=== PATIENT | male | born 1930 | race Caucasian/White ===

== ENCOUNTER 2016-11-03 16:18 | Inpatient (IN) | payer MEDICARE ==
[~2016-11-03] VITALS: Ht 175.3 cm; Wt 79.1 kg
[~2016-11-03 16:18] MED LIST: ALBU83IN INH; CARD120C3 PO; KLOR1TAB69 PO; LASI80TA PO; PLAV75TA38 PO; PRAD150C PO; RANI15TA PO; ZOCO20TA PO
--- NOTE | 2016-11-03 17:10 | REP ---
PORTABLE CHEST: AP portable view of the chest is performed and compared to prior study of 09/10/2015. There is mild cardiomegaly. There is no acute infiltrate or pulmonary edema. Lung rocha appear unchanged. There is mild calcification of the thoracic aorta. The mediastinal silhouette is unchanged. Multiple sternal wires are present. IMPRESSION: Mild cardiomegaly. No evidence of acute infiltrate or pulmonary edema. Signed by Bob Carter MD 11/04/2016 01:12 P
[2016-11-03] MEDS ORDERED: IPRATROPIUM 0.5MG/ALBUTEROL 2.5MG INH SOL UD 3ML (DUONEB)(J7620) As Ordered ONE ×2 (17:13→18:50)
[2016-11-03] MEDS ORDERED: ALBUTEROL SULFATE 2.5 MG/0.5 ML INH NEB SOLN As Ordered ONE (17:13)
[2016-11-03 17:25] LABS: BASO % 0.7 % (0.0-1.0); EOS # 0.3 K/mm3 (0.0-0.50); EOS % 4.7 % (0.0-3.0); LARGE UNSTAINED CELL # 0.2 K/mm3 (0.0-0.4); LARGE UNSTAINED CELL % 2.7 % (0.0-4.0); LYMPH # 0.7 K/mm3 (1.5-4.5); MEAN CORPUSCULAR HEMOGLOBIN 29.3 pg (27.0-33.0); MEAN CORPUSCULAR VOLUME 91.3 fl (80.0-96.0); MONO # 0.4 K/mm3 (0.0-0.8); NEUTROPHILS # 4.2 K/mm3 (1.8-7.7); NEUTROPHILS % 72.9 % (36.0-66.0); PLATELET COUNT, AUTOMATED 206 k/mm3 (150-450); RED CELL DISTRIBUTION WIDTH 14.2 % (11.5-14.5); WHITE BLOOD COUNT 5.8 K/mm3 (4.0-10.0)
[2016-11-03 17:56] LABS: ANION GAP 8 MEQ/L (8-16); BLOOD UREA NITROGEN 27 MG/DL (7-18); CARBON DIOXIDE LEVEL 31 MEQ/L (21-32); CHLORIDE LEVEL 101 MEQ/L (98-107); GLOMERULAR FILTRATION RATE > 60.0 (>35); GLUCOSE, FASTING 94 MG/DL (83-110); SODIUM LEVEL 140 MEQ/L (136-145)
[2016-11-03] MEDS ORDERED: methylPREDNISolone INJ 125 MG/2 ML VIAL (J2930) As Ordered ONE (18:28)
[2016-11-03] MEDS ORDERED: ALBU17IN INH (19:24)
[2016-11-03] MEDS ORDERED: PRAD150C PO (19:24)
[2016-11-03] MEDS ORDERED: PANT40TA2 PO (19:24)
[2016-11-03] MEDS ORDERED: POTA20TA PO (19:24)
[2016-11-03] MEDS ORDERED: ALLO100T PO (19:24)
[2016-11-03] MEDS ORDERED: CALC1CAP31 PO (19:24)
[2016-11-03 20:23] LABS: ABG BASE EXCESS -0.3 (-2.0-2.0); ABG DEVICE NASAL CANN; ABG HCO3 24.2 MEQ/L (22.0-26.0); ABG PARTIAL PRESSURE CO2 39.4 mmHg (35.0-45.0); ABG PARTIAL PRESSURE O2 118.9 mmHg (75.0-100.0); ABG STANDARD HCO3 24.3 MEQ/L (22.0-26.0); ABG TOTAL CO2 25.5 MEQ/L (23.0-31.0); ABG pH (ARTERIAL) 7.407 UNITS (7.350-7.450)
[2016-11-03] MEDS ORDERED: ISOVUE-370 76% 100ML VIAL (Q9967) As Ordered ONE (20:27)
--- NOTE | 2016-11-03 21:30 | REPUSA ---
Clinical history: Pain, swelling. Findings: The right common femoral, superficial femoral, popliteal, and other deep venous structures compress normally and demonstrate normal color Doppler flow. Normal venous waveforms with augmentatio n are seen. There is a right inguinal lymph node appreciated, measuring 2.1 x 1.0 I 1.7 cm, of uncert ain clinical significance. Impression: No evidence of deep vein thrombosis in the right femoral popliteal venous system.
--- NOTE | 2016-11-03 22:00 | REPUSA ---
CT angiogram of the chest Clinical statement: Chest pain and shortness of breath. Technique: Multiple axial CT images were obtained from the thoracic inlet through the upper abdomen a fter a bolus administration of nonionic intravenous contrast. Coronal and sagittal reconstructions we re also obtained. No comparison is available. Findings: The pulmonary arteries are well-opacified with contrast, with no intraluminal filling defec ts to suggest embolism. The thoracic aorta is unremarkable, with minimal atherosclerotic calcificatio ns. Thyroid gland is within normal limits. There is no thoracic lymphadenopathy. There are no pericar dial or pleural effusions. The lungs are clear. Limited imaging of the upper abdomen is unremarkable. There are no suspicious osseous lesions. Impression: Unremarkable CT examination of the chest. No evidence of pulmonary embolism.
[2016-11-03] MEDS ORDERED: PERCOCET 5MG/325MG TAB PO PRN (22:15)
[2016-11-03] MEDS ORDERED: ONDANSETRON 4MG/2ML VIAL (J2405) IV PRN (22:15)
[2016-11-03] MEDS ORDERED: ONDANSETRON 4 MG TAB (S0181) PO PRN (22:15)
[2016-11-03] MEDS ORDERED: ACETAMINOPHEN TAB 650MG DOSE (2X325MG) PO PRN (22:15)
--- NOTE | 2016-11-03 23:05 | HPEPDOC ---
Medical History and Physical Date of Admission Nov 03, 2016 at 22:07 History and Physical HISTORY AND PHYSICAL Date of admission: 11/03/2016 PCP: Dr. 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 fib, hypertension, hyperlipidemia, GERD, gout who presents with gradual worsening of shortness of breath. He states that this is been going on for almost a week, and keeps getting gradually worse. He notes that any sort of "stress" causes it to get worse, and the only thing that relieves it, is doing nothing. Today, he went to see his primary care physician Dr. Jason Toussaint secondary to his shortness of breath. Dr. Toussaint was concerned and sent him to the emergency department, the emergency department, he was satting 85-88% on room air. Lung imaging did not reveal any pulmonary embolism or pneumonia, and he does not appear to be volume overloaded. He has an audible wheeze, and I suspect that he is having an acute exacerbation of some sort of underlying chronic pulmonary issue. He denies any history of asthma or COPD, as well as ever smoking, but he does report that he has had an inhaler for home use for quite a while. 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 He currently lives alone , as his several months ago. He does have 3 children who live in the area. He denies any current or prior use of alcohol or tobacco. Allergies: No known drug allergies Review of systems: General: Negative for fever and chills Eyes: Negative for vision changes and ocular discharge ENT: Negative for sore throat and nose bleeding Cardiovascular: Negative for chest pain and palpitations Respiratory: Positive for cough, shortness of breath, and wheezing GI: Negative for nausea, vomiting, diarrhea, constipation Musculoskeletal: Negative for neck and back pain Skin: Positive for long-standing rash on legs Neuro: Negative for headache, dizziness, numbness, tingling Psych: Negative for suicidal ideation and depression Endocrine: Negative for polyuria : Positive for dysuria Heme: Negative for bruising and bleeding Home meds: See below Physical exam: Vital signs: Blood pressure 172/81, HR 78, temperature 96.1, O2 sat 84% on room air, RR 20 Gen.: awake, alert, no acute distress Eyes: Extraocular movements intact, normal sclera ENT: Moist mucous membranes Cardiovascular: RRR, no murmurs rubs or gallops Lungs: audible wheeze without stethoscope; auscultation exam reveals prolonged exp phase with diffuse exp wheezes Abdomen: Soft, NT/ND, normal BS Musculoskeletal: normal range of motion Extremities: No peripheral edema Neuro: alert and oriented 3, normal speech, no focal deficits Psych: Normal mood with congruent affect Labs and radiology: See below D-dimer greater than 1700 Troponin within normal limits BNP 167 Chest x-ray unremarkable Right lower extremity Doppler negative for DVT CTA with no evidence of pulmonary embolism Assessment and plan: 86-year-old male with coronary artery disease status post CABG, 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 fib, hypertension, hyperlipidemia, GERD, gout who presents with acute respiratory failure. 1. Acute respiratory failure: Patient denies any history of asthma or COPD, as well as any smoking history, but he does report that he has had an albuterol inhaler for many years. I suspect that this is an acute exacerbation of potentially chronic "lópez's lung." Other potential etiologies for his shortness of breath are unrevealing, as a CTA rules out PE, chest imaging rules out any pulmonary edema or PNA, and his hemoglobin is currently within normal limits. We will continue him with scheduled and as needed DuoNeb's, as well as steroids and Levaquin. 2. 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 No aspirin, as the patient is on pradaxa for his A. fib. The patient may potentially benefit from a beta michael, a decision which we will leave up to his primary physicians. 3. Chronic A. fib: The patient currently is in normal sinus rhythm with PACs. He is rate controlled. We'll continue his home diltiazem and and pradaxa. 4. Hypertension: Continue home diltiazem and and home Lasix. 5. GERD: Continue home PPI. 6. Gout: Not currently active. Continue home allopurinol. 7. Suspicion for underlying CHF: The patient is on a hefty dose of Lasix at home chronically. He is unaware of any history of CHF, but given his extensive cardiac history and the Lasix that he is prescribed, I suspect that he might have underlying CHF. We do not see any evidence of active edema on imaging, and a BNP is only 167. However, given his slightly unclear acute respiratory failure , we will check an echo, as well as continue his home Lasix. DVT prophylaxis: Home Pradaxa Dispo: admit as an inpatient to the service of Dr. Camp CODE STATUS: Full code Vital Signs see above Laboratory Data Labs 24H Laboratory Tests 2 11/03/16 17:13: Anion Gap 8, B-Type Natriuretic Peptide 167H, White Blood Count 5.8, Red Blood Count 4.83, Hemoglobin 14.1, Hematocrit 44.1, Mean Corpuscular Volume 91.3, Mean Corpuscular Hemoglobin 29.3, Mean Corpuscular Hemoglobin Concent 32.0, Red Cell Distribution Width 14.2, Platelet Count 206, Neutrophils (%) (Auto) 72.9H, Lymphocytes (%) (Auto) 12.0L, Monocytes (%) (Auto) 7.0H, Eosinophils (%) (Auto) 4.7H, Basophils (%) (Auto) 0.7, Neutrophils # (Auto) 4.2, Lymphocytes # (Auto) 0.7L, Monocytes # (Auto) 0.4, Eosinophils # (Auto) 0.3, Basophils # (Auto) 0.0, Blood Urea Nitrogen 27H, Creatinine 1.10, Sodium Level 140, Potassium Level 4.0 , Chloride Level 101, Carbon Dioxide Level 31, Calcium Level 9.0, Total Creatine Kinase 219, Creatine Kinase MB 6.4H, Creatine Kinase MB Relative Index 2.92, Glomerular Filtration Rate > 60.0, Large Unclassified Cells # 0.2, Large Unclassified Cells % 2.7, Troponin I 0.03 11/03/16 19:32: D-Dimer, Quantitative 1756.9H 11/03/16 20:08: Arterial Blood pH 7.407, Arterial Blood Partial Pressure CO2 39.4, Arterial Blood Partial Pressure O2 118.9H, Arterial Blood Total CO2 25.5, Arterial Blood HCO3 24.2, Arterial Blood Base Excess -0.3, Arterial Blood Oxygen Saturation 98.6, Blood Gas Bicarbonate Standard 24.3, Oxygen Delivery Device NASAL RHONDA CBC/BMP Laboratory Tests 11/03/16 17:13 Calcium Level 9.0, Total Creatine Kinase 219, Red Blood Count 4.83, Mean Corpuscular Volume 91.3, Mean Corpuscular Hemoglobin 29.3, Mean Corpuscular Hemoglobin Concent 32.0, Red Cell Distribution Width 14.2, Neutrophils (%) (Auto ) 72.9 H, Lymphocytes (%) (Auto) 12.0 L, Monocytes (%) (Auto) 7.0 H, Eosinophils (%) (Auto) 4.7 H, Basophils (%) (Auto) 0.7, Neutrophils # (Auto) 4.2 , Lymphocytes # (Auto) 0.7 L, Monocytes # (Auto) 0.4, Eosinophils # (Auto) 0.3, Basophils # (Auto) 0.0 Microbiology Microbiology 11/03/16 Blood Culture, Received Pending 11/03/16 Blood Culture, Received Pending Home Medications Scheduled Allopurinol (Allopurinol) 100 Mg Tab 100 MG PO DAILY Calcitriol (Calcitriol) 0.25 Mcg Cap 0.25 MCG PO QPM Clopidogrel Bisulfate (Plavix) 75 Mg Tab 75 MG PO QPM Dabigatran Etexilate (Pradaxa) 150 Mg Cap 150 MG PO BID Diltiazem Hcl (Cardizem Cd) 120 Mg Cap 120 MG PO DAILY Furosemide (Lasix) 80 Mg Tab 80 MG PO DAILY Pantoprazole Sodium (Pantoprazole Sodium) 40 Mg Tab 40 MG PO DAILY Potassium Chloride (Klor-Con M20) 20 Meq Tabcr 20 MEQ PO QPM Simvastatin (Zocor) 20 Mg Tab 20 MG PO DAILY Scheduled PRN Albuterol Sulfate (Albuterol Sulfate) 2.5 Mg/3 Ml Nebu 2.5 MG INH Q6HP PRN PRN SOB/WHEEZING Albuterol Sulfate (Ventolin Hfa) 200 Puff/8 Gm Aers 2 PUFF INH Q4H PRN PRN SHORTNESS OF BREATH Allergies Coded Allergies: No Known Allergies (Unverified , 10/06/14) EDMUNDO BUCHANAN Nov 03, 2016 23:05
[2016-11-04] VITALS (7 sets, daily range): BP systolic 140–163; BP diastolic 65–88
--- NOTE | 2016-11-04 01:11 | EDDOCDS ---
Nurse's Notes [facility] Name: Kendall Salazar Age: 86 yrs Sex: Male : 1930 Arrival Date: 11/03/2016 Time: 16:18 Bed 15 Private MD: Jason Toussaint H. Diagnosis: Shortness of breath;Wheezing Presentation: 11/03 16:35 Presenting complaint: Patient states: cough and SOB x [address] Toussaint's [facility] office. Red Flag criteria, finish triage then to bed. 16:35 Acuity: DANNY Level 2 [facility] 16:37 Adult Sepsis Screening: The patient does not have new or worsening altered mentation. [facility] Patient has a respiratory rate of greater than or equal to 22 (1 point). Systolic blood pressure is greater than 100. Patient has a qSOFA score of 1- Negative Sepsis Screen. Suicide/Homicide risk assessment- the patient denies having any suicidal and/or homicidal ideations and does not present with any other emotional, behavioral or mental health complaints. Status: Patient is not a food service specialist or dependent. Transition of care: patient was received from a primary care office; Dr Toussaint. 16:37 Method Of Arrival: Walkin/Carried/Asstd [facility] Triage Assessment: 16:44 General: Appears well nourished, well groomed, Behavior is appropriate for age, kpj pleasant. Pain: Denies pain. Neurological: Level of Consciousness is awake, alert, Oriented to person, place, time. Cardiovascular: Chest pain is denied. Respiratory: Onset: The symptoms/episode began/occurred 2-3 days ago, Airway is patent Respiratory effort is labored, shallow, Respiratory pattern is regular, symmetrical, Reports shortness of breath cough that is labored breathing wheezing. Derm: Skin is dry, Skin is pale, pink, Skin temperature is warm. Historical: - Allergies: No known drug Allergies; - Home Meds: 1. calcitriol 0.25 mcg oral cap 1 cap (Last dose: 11/03/2016 08:00) 2. Klor-Con M20 20 mEq Oral TbTQ 1 tab once daily (Last dose: 11/03/2016 08:00) 3. furosemide 80 mg Oral tab 1 tab once daily (Last dose: 11/03/2016 08:00) 4. albuterol sulfate 2.5 mg /3 mL (0.083 %) Nebulizer nebu 3 mL 4 times per day as needed (Last dose: 11/02/2016) 5. diltiazem HCl 120 mg Oral cp24 1 cap once daily (Last dose: 11/03/2016 08:00) 6. simvastatin 20 mg Oral tab 1 tab once daily (Last dose: 11/03/2016 08:00) 7. Plavix 75 mg Oral tab 1 tab once daily (Last dose: 11/03/2016 08:00) 8. Pradaxa 150 mg oral cap 1 cap 2 times per day (Last dose: 11/03/2016 08:00) 9. allopurinol 100 mg Oral tab 1 tab once daily (Last dose: 11/03/2016 08:00) 10. pantoprazole 40 mg oral TbEC 1 tab once daily (Last dose: 11/03/2016 08:00) 11. Ventolin Rotahaler/Rotacaps 200 mcg Inhl CpDv every 4 hours as needed - PMHx: Gout; CAD; GERD; Hypercholesterolemia; Hypertension; - PSHx: CABG; femoral popliteal bypass graft right leg; - Social history: Smoking status: Patient states was never smoker of tobacco. No barriers to communication noted, The patient speaks fluent Romanian. - Family history: Not pertinent. - : The pt / caregiver states he / she is on anticoagulants: Plavix. Pradaxa (Dabigatran) Home medication list is obtained from the patient. - Exposure Risk Screening:: None identified. Screenin:34 Screening information is obtained from the patient. Fall risk: At risk due to age, The af2 following interventions are performed due to a positive Fall Risk Screen: Fall Risk is added to Special Handling on the patient Summary Screen. A Fall Risk Bracelet was applied to the patient. Side Rails are placed in the up position. A Call Tomlin is given with instruction to call for help when getting out of bed. Assistance ADL's: requires no assistance with activities of daily living. Abuse/DV Screen: The patient / caregiver reports he/she is: not in a situation that causes fear, pain or injury. Nutritional screening: No deficits noted. Advance Directives: Further advance directive information is declined. home support is adequate. Assessment: 17:20 General: Appears ill, well developed, well nourished, well groomed, Behavior is kcs cooperative, pleasant. Neurological: Level of Consciousness is awake, alert. Cardiovascular: no ankle edema noted.. Respiratory: Airway is patent Respiratory effort is labored, Respiratory pattern is regular, symmetrical, Breath sounds with wheezes bilaterally. Derm: Skin is intact, is healthy with good turgor, Skin is dry, Skin is normal. 17:45 Reassessment: patient sounds much better - no wheezing. Talking easier.. kcs 18:23 Reassessment: Patient eating dinner. Son at bedside.. kcs 18:30 Reassessment: patient became dyspneic and wheezing again after eating - provider kcs informed - orders received.. 19:14 General: Appears ill, Behavior is cooperative, pleasant, Assumed care of pt at this af2 time. Pt recently finished neb tx, reports symptoms have improved minimally. . Neurological: Level of Consciousness is awake, alert, obeys commands. Cardiovascular:. Respiratory: Airway is patent Respiratory effort is labored, Respiratory pattern is regular, symmetrical, Breath sounds with wheezes bilaterally. Reports shortness of breath. Derm: Skin is intact, is healthy with good turgor, Skin is dry, Skin is normal. 20:33 General: Appears in no apparent distress, Behavior is cooperative, pt lying on af2 stretcher talking on phone and watching tv, offers no complaints at this time. will continue to monitor. . Neurological: Level of Consciousness is awake, alert. Respiratory: Airway is patent Respiratory effort is labored. Derm: Skin is normal. 21:49 General: Appears in no apparent distress, Behavior is cooperative, pt transported to CT af2 at this time, tolerated procedure well. piv patent. pt lying on stretcher resting quietly.. Neurological: Level of Consciousness is awake, alert, obeys commands. Cardiovascular: Rhythm is regular. Respiratory: Airway is patent Respiratory effort is labored. Derm: Skin is normal. 22:53 General: Appears ill, Behavior is appropriate for age, cooperative. Neurological: Level af2 of Consciousness is awake, alert, obeys commands. Respiratory: Airway is patent Respiratory effort is labored. Derm: Skin is normal. 23:58 General: Appears in no apparent distress, Behavior is cooperative, pt assisted to use af2 urinal. . Neurological: Level of Consciousness is awake, alert, obeys commands. Respiratory: Airway is patent Respiratory effort is labored. Derm: Skin is normal. 11/04 00:57 General: Appears in no apparent distress, Behavior is appropriate for age. af2 Neurological: Level of Consciousness is awake, alert, obeys commands. Respiratory: Airway is patent Respiratory effort is labored. Derm: Skin is normal. Vital Signs: 11/03 16:20 BP 188 / 112; Pulse 66; Resp 16 S; Temp 96.1(O); Pulse Ox 97% on R/A; Weight 78.47 kg gr2 (R); Height 5 ft. 9 in. (175.26 cm) (R); Pain 4/10; 16:36 Resp 32; kpj 17:13 BP 163 / 117 (auto/); kcs 17:13 Pulse 70 MON; Pulse Ox 95% ; kcs 17:28 BP 190 / 79 (auto/); kcs 17:28 Pulse 72 MON; Pulse Ox 99% ; kcs 17:43 BP 174 / 79 (auto/); kcs 17:43 Pulse 72 MON; Pulse Ox 97% ; kcs 17:58 BP 172 / 74 (auto/); kcs 17:58 Pulse 74 MON; Resp 20; Pulse Ox 95% ; kcs 18:13 BP 160 / 68 (auto/); kcs 18:13 Pulse 74 MON; Pulse Ox 93% ; kcs 18:28 BP 174 / 78 (auto/); kcs 18:28 Pulse 80 MON; Resp 22; Pulse Ox 92% ; kcs 18:43 BP 206 / 81 (auto/); kcs 18:43 Pulse 80 MON; Pulse Ox 93% ; kcs 18:58 BP 180 / 77 (auto/); kcs 18:58 Pulse 74 MON; Pulse Ox 100% ; kcs 19:13 BP 180 / 77 (auto/); af2 19:13 Pulse 80 MON; Resp 24 S; Pulse Ox 93% ; af2 20:13 BP 179 / 101 (auto/); af2 20:13 Pulse 74 MON; Resp 18 S; Pulse Ox 98% on R/A; af2 21:13 BP 170 / 87 (auto/); af2 21:13 Pulse 74 MON; Resp 22 S; Pulse Ox 97% on 2 lpm NC; af2 21:43 BP 166 / 76 (auto/); af2 21:49 Pulse 74 MON; Resp 22 S; Pulse Ox 94% on 2 lpm NC; af2 21:58 BP 179 / 81 (auto/); af2 21:58 Pulse 68 MON; Resp 18 S; Pulse Ox 93% on R/A; af2 22:11 Pulse 70 MON; Pulse Ox 91% ; af2 22:13 BP 172 / 81 (auto/); af2 22:28 BP 185 / 85 (auto/); af2 22:28 Pulse 70 MON; Resp 18 S; Pulse Ox 82% on R/A; af2 22:58 BP 191 / 90 (auto/); af2 22:58 Pulse 74 MON; Resp 18 S; Pulse Ox 94% on R/A; af2 23:13 BP 189 / 84 (auto/); af2 23:13 Pulse 68 MON; Pulse Ox 94% ; af2 23:28 BP 172 / 81 (auto/); af2 23:28 Pulse 76 MON; Resp 18 S; Pulse Ox 94% on R/A; af2 11/04 00:13 BP 191 / 82 (auto/); af2 00:13 Pulse 68 MON; Resp 18 S; Pulse Ox 95% on R/A; af2 01:00 BP 169 / 77; Pulse 63; Resp 18; Temp 96.9(O); Pulse Ox 94% on R/A; Pain 0/10; kb5 11/03 16:20 Body Mass Index 25.55 (78.47 kg, 175.26 cm) gr2 Vitals: 11/03 16:20 Log In Time: November 03, 2016 at 16:20. RN notified that patient meets Red Flag gr2 criteria. ED Course: 16:19 Patient visited by Jacqueline Ivory. gr2 16:19 Patient moved to Waiting gr2 16:20 Jason Toussaint is Private Physician. gr2 16:24 Patient moved to Pre RCE gr2 16:36 Triage Initiated kpj 16:46 Patient moved to 15 kp 16:52 [facility] le 17:06 EKG done. (by ED staff). Reviewed by Tina OWUSU. ct3 17:07 Patient visited by Sobia Gomez, JIM. ct3 17:10 Inserted saline lock: 20 gauge in left antecubital area The patient tolerated the kcs procedure well. 17:14 Troponin Sent. kcs 17:14 Cardiac Injury Profile Sent. kcs 17:14 CBC with Diff Sent. kcs 17:14 Basic Metabolic Profile Sent. kcs 17:14 B-Type Natiuretic Peptide Sent. kcs 17:14 -Blood Culture Sent. kcs 17:14 BLOOD CULTURES Sent. kcs 17:18 Chest, 1 View Returned. EDMS 17:21 Patient visited by Tina Saenz FNP. le 17:46 [facility] Payment Agreement was scanned into [employer] and attached to record. ks16 18:14 Diet: 2 gram sodium given to patient. ct3 18:15 Patient visited by Sobia Gomez PCA. ct3 18:56 Tori Johnson,RN is Primary Nurse. af2 19:14 Patient visited by Tori Johnson RN. af2 19:16 Patient visited by Tori Johnson RN. af2 19:22 D-Dimer Quant Sent. af2 20:01 Fifi Salmeron is Hospitalizing Provider. le 20:14 -Arterial Blood Gas Sent. jh6 20:35 Patient visited by Tori Johnson RN. af2 21:51 Patient visited by Tori Johnson RN. af2 22:08 US Lower Extremity R/O DVT Returned. EDMS 22:08 CT Chest Angio R/O PE Returned. EDMS 22:52 The patient / caregiver is instructed regarding the plan of care and ED course. af2 22:53 No procedures done that require assistance. af2 23:59 Patient visited by Tori Johnson RN. af2 11/04 00:25 Patient visited by Tori Johnson RN. af2 00:41 Patient visited by Neto Jack PCA. kb5 01:01 Patient visited by Neto Jack PCA. kb5 Administered Medications: 11/03 17:16 Drug: Albuterol-Ipratropium 3 ml [ipratropium-albuterol 0.5 mg-3 mg(2.5 mg base)/3 mL [facility] nebulization soln (3 mL)] Route: Inhalation; 17:25 Drug: Albuterol 5 mg [albuterol sulfate 2.5 mg/0.5 mL solution for nebulization (1 mL)] [facility] Route: Nebulizer; 18:30 Drug: Solu-MEDROL 125 mg [Solu-Medrol 500 mg intravenous solution (125 mg)] Route: IVP; kcs Site: left antecubital; 18:52 Drug: Albuterol-Ipratropium 3 ml [ipratropium-albuterol 0.5 mg-3 mg(2.5 mg base)/3 mL jh6 nebulization soln (3 mL)] Route: Inhalation; RT: 17:16 Initial Med Neb Given as ordered Patient was instructed and evaluated on procedure jh6 Patient tolerated procedure well without adverse effect. Respiratory: Airway is patent Respiratory effort is even, labored, Respiratory pattern is regular symmetrical, Breath sounds with wheezes in mediastinum, right upper lobe, left upper lobe, right middle lobe, left lower lobe and right lower lobe at expiration at inspiration. 17:25 Subsequent Med Neb Given as ordered Patient was reinforced on procedure Patient jh6 tolerated procedure well without adverse effect. Respiratory: Airway is patent Respiratory effort is even, labored, Respiratory pattern is regular symmetrical, Breath sounds with wheezes in mediastinum, right upper lobe, left upper lobe, right middle lobe, left lower lobe and right lower lobe at expiration at inspiration. 17:37 Respiratory: Airway is patent Respiratory effort is even, labored, Respiratory pattern jh6 is regular symmetrical, Breath sounds are coarse in right upper lobe, left upper lobe, right middle lobe, left lower lobe and right lower lobe Breath sounds with wheezes in mediastinum, right upper lobe, left upper lobe, right middle lobe, left lower lobe and right lower lobe at expiration. 18:53 Respiratory: Airway is patent Respiratory effort is even, labored, Respiratory pattern jh6 is regular symmetrical, Breath sounds are coarse in right upper lobe, left upper lobe, right middle lobe, left lower lobe and right lower lobe Breath sounds with wheezes in mediastinum, right upper lobe, left upper lobe, right middle lobe, left lower lobe and right lower lobe at expiration at inspiration. 19:02 Respiratory: Airway is patent Respiratory effort is even, labored, Respiratory pattern jh6 is regular symmetrical, Breath sounds are diminished in right upper lobe, left upper lobe, right middle lobe, left lower lobe and right lower lobe Stridor noted. 20:14 ABG's drawn from left radial artery pressure held for 5 minutes no bleeding noted jh6 pressure bandage applied specimen sent pt. tolerated well. Order Results: Lab Order: B-Type Natiuretic Peptide; SPEC'M 11/03/16 17:13 Test: BRAIN NATRIURETIC PEPTIDE; Value: 167; Range: <100; Abnormal: Above high normal; Units: PG/ML; Status: F Lab Order: Basic Metabolic Profile; SPEC'M 11/03/16 17:13 Test: GLUCOSE, FASTING; Value: 94; Range: 83-110; Units: MG/DL; Status: F Test: BLOOD UREA NITROGEN; Value: 27; Range: 7-18; Abnormal: Above high normal; Units: MG/DL; Status: F Test: CREATININE FOR GFR; Value: 1.10; Range: 0.70-1.30; Units: MG/DL; Status: F Test: GLOMERULAR FILTRATION RATE; Value: > 60.0; Range: >35; Status: F Test: SODIUM LEVEL; Value: 140; Range: 136-145; Units: MEQ/L; Status: F Test: POTASSIUM SERUM; Value: 4.0; Range: 3.5-5.1; Units: MEQ/L; Status: F Test: CHLORIDE LEVEL; Value: 101; Range: 98-107; Units: MEQ/L; Status: F Test: CARBON DIOXIDE LEVEL; Value: 31; Range: 21-32; Units: MEQ/L; Status: F Test: ANION GAP; Value: 8; Range: 8-16; Units: MEQ/L; Status: F Test: CALCIUM LEVEL; Value: 9.0; Range: 8.8-10.2; Units: MG/DL; Status: F Test Note: ; Units are mL/min/1.73 m2 Chronic Kidney Disease Staging per NKF: Stage I & II GFR >=60 Normal to Mildly Decreased Stage III GFR 30-59 Moderately Decreased Stage IV GFR 15-29 Severely Decreased Stage V GFR <15 Very Little GFR Left ESRD GFR <15 on PHOTOGRAPHER MOTION PICTURE Lab Order: CBC with Diff; SPEC'M 11/03/16 17:13 Test: WHITE BLOOD COUNT; Value: 5.8; Range: 4.0-10.0; Units: K/mm3; Status: F Test: RED BLOOD COUNT; Value: 4.83; Range: 4.30-6.10; Units: M/mm3; Status: F Test: HEMOGLOBIN; Value: 14.1; Range: 14.0-18.0; Units: g/dl; Status: F Test: HEMATOCRIT; Value: 44.1; Range: 42.0-52.0; Units: %; Status: F Test: MEAN CORPUSCULAR VOLUME; Value: 91.3; Range: 80.0-96.0; Units: fl; Status: F Test: MEAN CORPUSCULAR HEMOGLOBIN; Value: 29.3; Range: 27.0-33.0; Units: pg; Status: F Test: MEAN CORPUSCULAR HGB CONC; Value: 32.0; Range: 32.0-36.5; Units: g/dl; Status: F Test: RED CELL DISTRIBUTION WIDTH; Value: 14.2; Range: 11.5-14.5; Units: %; Status: F Test: PLATELET COUNT, AUTOMATED; Value: 206; Range: 150-450; Units: k/mm3; Status: F Test: NEUTROPHILS %; Value: 72.9; Range: 36.0-66.0; Abnormal: Above high normal; Units: %; Status: F Test: LYMPH %; Value: 12.0; Range: 24.0-44.0; Abnormal: Below low normal; Units: %; Status: F Test: MONO %; Value: 7.0; Range: 0.0-5.0; Abnormal: Above high normal; Units: %; Status: F Test: EOS %; Value: 4.7; Range: 0.0-3.0; Abnormal: Above high normal; Units: %; Status: F Test: BASO %; Value: 0.7; Range: 0.0-1.0; Units: %; Status: F Test: LARGE UNSTAINED CELL %; Value: 2.7; Range: 0.0-4.0; Units: %; Status: F Test: NEUTROPHILS #; Value: 4.2; Range: 1.8-7.7; Units: K/mm3; Status: F Test: LYMPH #; Value: 0.7; Range: 1.5-4.5; Abnormal: Below low normal; Units: K/mm3; Status: F Test: MONO #; Value: 0.4; Range: 0.0-0.8; Units: K/mm3; Status: F Test: EOS #; Value: 0.3; Range: 0.0-0.50; Units: K/mm3; Status: F Test: BASO #; Value: 0.0; Range: 0.0-0.2; Units: K/mm3; Status: F Test: LARGE UNSTAINED CELL #; Value: 0.2; Range: 0.0-0.4; Units: K/mm3; Status: F Lab Order: Cardiac Injury Profile; [facility]' 11/03/16 17:13 Test: CPK CREATINE PHOSPHOKINASE; Value: 219; Range: 39-308; Units: U/L; Status: F Test: CK-MB VALUE MASS; Value: 6.4; Range: 0.0-3.6; Abnormal: Above high normal; Units: NG/ML; Status: F Test: MB/CK RELATIVE INDEX; Value: 2.92; Range: < OR =4; Status: F Test Note: ; DIAGNOSIS CRITERIA MMB ng/ml Relative Index (RI) NON-AMI < or = 5 N/A JANE ZONE > 5 < or = 4 AMI > 5 > 4 Lab Order: Troponin; SPEC 11/03/16 17:13 Test: TROPONIN I; Value: 0.03; Range: < 0.10; Units: NG/ML; Status: F Test Note: ; Troponin I Reference Interval for Runfaces LOCI: 99th Percentile= 0.00-0.045 ng/ml Risk Stratification: <= 0.10 ng/ml Decreased Risk for Adverse Clinical Events. 0.10-1.50 ng/ml Increased Risk for Adverse Clinical Events. Evaluation of additional criterion and/or repeat testing in 2-6 hours is suggested to rule out myocardial damage. >= 1.50 ng/ml Indicative of Myocardial Injury. Lab Order: D-Dimer Quant; [facility]' 11/03/16 19:32 Test: D-DIMER QUANT; Value: 1756.9; Range: <500; Abnormal: Above high normal; Units: ng/ml; Status: F Lab Order: -Arterial Blood Gas; [facility]'M 11/03/16 20:08 Test: ABG pH (ARTERIAL); Value: 7.407; Range: 7.350-7.450; Units: UNITS; Status: F Test: ABG PARTIAL PRESSURE CO2; Value: 39.4; Range: 35.0-45.0; Units: mmHg; Status: F Test: ABG PARTIAL PRESSURE O2; Value: 118.9; Range: 75.0-100.0; Abnormal: Above high normal; Units: mmHg; Status: F Test: ABG TOTAL CO2; Value: 25.5; Range: 23.0-31.0; Units: MEQ/L; Status: F Test: ABG HCO3; Value: 24.2; Range: 22.0-26.0; Units: MEQ/L; Status: F Test: ABG BASE EXCESS; Value: -0.3; Range: -2.0-2.0; Status: F Test: ABG STANDARD HCO3; Value: 24.3; Range: 22.0-26.0; Units: MEQ/L; Status: F Test: ABG O2 SATURATION; Value: 98.6; Range: 95.0-99.0; Units: %; Status: F Test: ABG DEVICE; Value: NASAL RHONDA; Status: F Radiology Order: Chest, 1 View Test: Chest, 1 View REASON FOR EXAMINATION: Shortness of Breath; PORTABLE CHEST:; ; AP portable view of the chest is performed and compared to prior study of; 09/10/2015.; ; There is mild cardiomegaly. There is no acute infiltrate or pulmonary edema. Lung; rocha appear unchanged. There is mild calcification of the thoracic aorta. The; mediastinal silhouette is unchanged. Multiple sternal wires are present.; ; IMPRESSION:; Mild cardiomegaly. No evidence of acute infiltrate or pulmonary edema.; ; ; ; Unreviewed; Radiology Order: CT Chest Angio R/O PE Test: CT Chest Angio R/O PE REASON FOR EXAMINATION: Shortness of Breath; ; CT angiogram of the chest; Clinical statement: Chest pain and shortness of breath.; Technique: Multiple axial CT images were obtained from the thoracic inlet through the upper abdomen a; fter a bolus administration of nonionic intravenous contrast. Coronal and sagittal reconstructions we; re also obtained.; No comparison is available.; Findings: The pulmonary arteries are well-opacified with contrast, with no intraluminal filling defec; ts to suggest embolism. The thoracic aorta is unremarkable, with minimal atherosclerotic calcificatio; ns. Thyroid gland is within normal limits. There is no thoracic lymphadenopathy. There are no pericar; dial or pleural effusions. The lungs are clear. Limited imaging of the upper abdomen is unremarkable.; There are no suspicious osseous lesions.; Impression: Unremarkable CT examination of the chest. No evidence of pulmonary embolism.; ; Radiology Order: US Lower Extremity R/O DVT Test: US Lower Extremity R/O DVT REASON FOR EXAMINATION: RLE swelling/post-op;Shortness of Breath; ; Clinical history: Pain, swelling.; Findings: The right common femoral, superficial femoral, popliteal, and other deep venous structures; compress normally and demonstrate normal color Doppler flow. Normal venous waveforms with augmentatio; n are seen. There is a right inguinal lymph node appreciated, measuring 2.1 x 1.0 I 1.7 cm, of uncert; ain clinical significance.; Impression:; No evidence of deep vein thrombosis in the right femoral popliteal venous system.; ; Outcome: 20:01 Decision to Hospitalize by Provider. le 22:53 Discharge Assessment: Patient awake, alert and oriented x 3. No cognitive and/or af2 functional deficits noted. Patient verbalized understanding of disposition instructions. patient administered narcotics - no. The following High Risk Discharge criteria are identified: None. Admitted to PCU accompanied by nurse, accompanied by tech, via stretcher, with chart. Condition: stable. CT Study completed. Property :Personal belongings accompany Pt. 11/04 01:10 Patient left the ED. grace Signatures: Dispatcher [employer] EDMS Shreya Portillo RN RN kcs Jobson, Karen, RN RN kpj Newman, Jill New, RN RN jan Bancroft, Kristopher, TIME STUDY CLERK TIME STUDY CLERK kb5 Tina Saenz, CARDIAC CARE NURSE CARDIAC CARE NURSE Sobia Leroy, TIME STUDY CLERK TIME STUDY CLERK ct3 Jose D Lopez jh6 Jacqueline Ivory gr2 Tori Johnson RN RN af2 Jess Magallanes, Reg Reg [email or web address] Corrections: (The following items were deleted from the chart) 11/03 18:15 18:14 Diet: ct3 ct3 MTDD
--- NOTE | 2016-11-04 01:11 | EDDOCDS ---
Physician Documentation [facility] Name: Kendall Salazar Age: 86 yrs Sex: Male : 1930 Arrival Date: 11/03/2016 Time: 16:18 Bed 15 Private MD: Jason Toussaint H. Disposition: 11/03/16 20:01 Hospitalization ordered by Fifi Salmeron for Inpatient Admission. Preliminary diagnosis are Shortness of breath, Wheezing. - Bed requested for PCU. - Status is Inpatient Admission. grace - Condition is Stable. - Problem is new. - Symptoms are unchanged. Historical: - Allergies: No known drug Allergies; - Home Meds: 1. calcitriol 0.25 mcg oral cap 1 cap (Last dose: 11/03/2016 08:00) 2. Klor-Con M20 20 mEq Oral TbTQ 1 tab once daily (Last dose: 11/03/2016 08:00) 3. furosemide 80 mg Oral tab 1 tab once daily (Last dose: 11/03/2016 08:00) 4. albuterol sulfate 2.5 mg /3 mL (0.083 %) Nebulizer nebu 3 mL 4 times per day as needed (Last dose: 11/02/2016) 5. diltiazem HCl 120 mg Oral cp24 1 cap once daily (Last dose: 11/03/2016 08:00) 6. simvastatin 20 mg Oral tab 1 tab once daily (Last dose: 11/03/2016 08:00) 7. Plavix 75 mg Oral tab 1 tab once daily (Last dose: 11/03/2016 08:00) 8. Pradaxa 150 mg oral cap 1 cap 2 times per day (Last dose: 11/03/2016 08:00) 9. allopurinol 100 mg Oral tab 1 tab once daily (Last dose: 11/03/2016 08:00) 10. pantoprazole 40 mg oral TbEC 1 tab once daily (Last dose: 11/03/2016 08:00) 11. Ventolin Rotahaler/Rotacaps 200 mcg Inhl CpDv every 4 hours as needed - PMHx: Gout; CAD; GERD; Hypercholesterolemia; Hypertension; - PSHx: CABG; femoral popliteal bypass graft right leg; - Social history: Smoking status: Patient states was never smoker of tobacco. No barriers to communication noted, The patient speaks fluent American. - Family history: Not pertinent. - : The pt / caregiver states he / she is on anticoagulants: Plavix. Pradaxa (Dabigatran) Home medication list is obtained from the patient. - Exposure Risk Screening:: None identified. Vital Signs: 11/03 16:20 BP 188 / 112; Pulse 66; Resp 16 S; Temp 96.1(O); Pulse Ox 97% on R/A; Weight 78.47 kg / gr2 173 lbs (R); Height 5 ft. 9 in. (175.26 cm) (R); Pain 4/10; 16:36 Resp 32; kpj 17:13 BP 163 / 117 (auto/); kcs 17:13 Pulse 70 MON; Pulse Ox 95% ; kcs 17:28 BP 190 / 79 (auto/); kcs 17:28 Pulse 72 MON; Pulse Ox 99% ; kcs 17:43 BP 174 / 79 (auto/); kcs 17:43 Pulse 72 MON; Pulse Ox 97% ; kcs 17:58 BP 172 / 74 (auto/); kcs 17:58 Pulse 74 MON; Resp 20; Pulse Ox 95% ; kcs 18:13 BP 160 / 68 (auto/); kcs 18:13 Pulse 74 MON; Pulse Ox 93% ; kcs 18:28 BP 174 / 78 (auto/); kcs 18:28 Pulse 80 MON; Resp 22; Pulse Ox 92% ; kcs 18:43 BP 206 / 81 (auto/); kcs 18:43 Pulse 80 MON; Pulse Ox 93% ; kcs 18:58 BP 180 / 77 (auto/); kcs 18:58 Pulse 74 MON; Pulse Ox 100% ; kcs 19:13 BP 180 / 77 (auto/); af2 19:13 Pulse 80 MON; Resp 24 S; Pulse Ox 93% ; af2 20:13 BP 179 / 101 (auto/); af2 20:13 Pulse 74 MON; Resp 18 S; Pulse Ox 98% on R/A; af2 21:13 BP 170 / 87 (auto/); af2 21:13 Pulse 74 MON; Resp 22 S; Pulse Ox 97% on 2 lpm NC; af2 21:43 BP 166 / 76 (auto/); af2 21:49 Pulse 74 MON; Resp 22 S; Pulse Ox 94% on 2 lpm NC; af2 21:58 BP 179 / 81 (auto/); af2 21:58 Pulse 68 MON; Resp 18 S; Pulse Ox 93% on R/A; af2 22:11 Pulse 70 MON; Pulse Ox 91% ; af2 22:13 BP 172 / 81 (auto/); af2 22:28 BP 185 / 85 (auto/); af2 22:28 Pulse 70 MON; Resp 18 S; Pulse Ox 82% on R/A; af2 22:58 BP 191 / 90 (auto/); af2 22:58 Pulse 74 MON; Resp 18 S; Pulse Ox 94% on R/A; af2 23:13 BP 189 / 84 (auto/); af2 23:13 Pulse 68 MON; Pulse Ox 94% ; af2 23:28 BP 172 / 81 (auto/); af2 23:28 Pulse 76 MON; Resp 18 S; Pulse Ox 94% on R/A; af2 11/04 00:13 BP 191 / 82 (auto/); af2 00:13 Pulse 68 MON; Resp 18 S; Pulse Ox 95% on R/A; af2 01:00 BP 169 / 77; Pulse 63; Resp 18; Temp 96.9(O); Pulse Ox 94% on R/A; Pain 0/10; kb5 11/03 16:20 Body Mass Index 25.55 (78.47 kg, 175.26 cm) gr2 MDM: 11/03 16:31 -Blood Culture (Adults Only), peripheral from different site, or from device/port/PICC sd1 etc. if present ordered. 16:31 Electric Organ Assembler/Pulse Ox/q 15 min VS ordered. sd1 16:31 IV Saline Lock ordered. sd1 16:31 Oxygen at 4L/Min NC or Home dosage ordered. sd1 16:31 Rhythm Strip to chart ordered. sd1 16:32 Chest, 1 View Ordered. EDMS 16:32 -Blood Culture Ordered. EDMS 16:32 B-Type Natiuretic Peptide Ordered. EDMS 16:32 Basic Metabolic Profile Ordered. EDMS 16:32 CBC with Diff Ordered. EDMS 16:32 Cardiac Injury Profile Ordered. EDMS 16:32 Troponin Ordered. EDMS 16:32 ECG WITH READING ER PHYS+CARDIAG ordered. EDMS 16:52 -Blood Culture (Adults Only), peripheral from different site, or from device/port/PICC deg etc. if present complete. 16:52 BLOOD CULTURES Ordered. EDMS 16:53 Albuterol 5 mg Nebulizer once ordered. le 16:53 Albuterol-Ipratropium 3 ml Inhalation once ordered. le 16:53 Call Respiratory ordered. le 16:54 Call Respiratory complete. deg 17:31 CBC with Diff Reviewed. le 17:45 Financial registration complete. [email or web address] 17:46 [facility] Payment Agreement was scanned into [employer] and attached to record. [email or web address] 18:00 2 GRAM SODIUM+DIET ordered. EDMS 18:28 Solu-MEDROL 125 mg IVP once ordered. le 18:28 Albuterol-Ipratropium 3 ml Inhalation once ordered. le 18:28 B-Type Natiuretic Peptide Reviewed. le 18:47 BED REQUEST+ADM ordered. EDMS 19:08 Basic Metabolic Profile Reviewed. le 19:08 Cardiac Injury Profile Reviewed. le 19:08 Troponin Reviewed. le 19:08 Chest, 1 View Reviewed. le 19:10 D-Dimer Quant Ordered. EDMS 19:58 D-Dimer Quant Reviewed. le 20:00 US Lower Extremity R/O DVT Ordered. EDMS 20:00 CT Chest Angio R/O PE Ordered. EDMS 20:03 Call Respiratory ordered. le 20:04 -Arterial Blood Gas Ordered. EDMS 20:31 Call Respiratory complete. ml3 22:12 Admission / Observation Status ordered. EDMS 22:13 ECHOCARD,DOPPLER/COLOR FLOW ordered. EDMS 22:13 2 GRAM SODIUM DIET ordered. EDMS 22:13 CARDIAC MARKER PANEL Ordered. EDMS 22:13 CARDIAC MARKER PANEL Ordered. EDMS 22:13 CARDIAC MARKER PANEL Ordered. EDMS Administered Medications: 17:16 Drug: Albuterol-Ipratropium 3 ml [ipratropium-albuterol 0.5 mg-3 mg(2.5 mg base)/3 mL 6 nebulization soln (3 mL)] Route: Inhalation; 17:25 Drug: Albuterol 5 mg [albuterol sulfate 2.5 mg/0.5 mL solution for nebulization (1 mL)] [facility] Route: Nebulizer; 18:30 Drug: Solu-MEDROL 125 mg [Solu-Medrol 500 mg intravenous solution (125 mg)] Route: IVP; kcs Site: left antecubital; 18:52 Drug: Albuterol-Ipratropium 3 ml [ipratropium-albuterol 0.5 mg-3 mg(2.5 mg base)/3 mL jh6 nebulization soln (3 mL)] Route: Inhalation; Signatures: Dispatcher [employer] EDLA Clarice Kimbrough MD MD sd1 Cassidy Anton, Credit Underwriter Unit deg Genoveva Alfonso RN RN kpj Newman, Jill New RN Parul Knox RN RN daq Lopresti, Mary-Elizabeth, Credit Underwriter Unit ml3 Tina Saenz, RECOVERER RECOVERER Tori Polk RN RN af2 Jess Magallanes, Reg Reg ks16 Shreya Portillo RN, Jacob 6 The chart was reviewed and I authenticate all verbal orders and agree with the evaluation and treatment provided.Attachments: 17:46 [facility] Payment Agreement [email or web address] MTDD
[2016-11-04] MEDS: methylPREDNISolone INJ 125 MG/2 ML VIAL (J2930) IV SCH ×3 (02:15→17:19)
[2016-11-04] MEDS: DABIGATRAN ETEXILATE 75 MG CAP (PRADAXA) PO SCH ×3 (02:15→20:16)
[2016-11-04] MEDS: LevoFLOXacin 500 MG in APPROPRIATE DILUENT 1 EA IV SCH ×2 (02:15→23:13)
[2016-11-04] MEDS: CALCITRIOL 0.25 MCG CAP (S0169) PO SCH ×2 (02:15→20:16)
[2016-11-04] MEDS: CLOPIDOGREL 75 MG TAB PO SCH ×2 (02:15→20:16)
[2016-11-04] MEDS: IPRATROPIUM 0.5MG/ALBUTEROL 2.5MG INH SOL UD 3ML (DUONEB)(J7620) NEB SCH ×4 (02:35→20:26)
[2016-11-04 02:52] LABS: MAGNESIUM LEVEL 1.9 MG/DL (1.8-2.4)
[2016-11-04] MEDS ORDERED: MAG SULF 1GM/100ML (MAG RUN) 1 GM in APPROPRIATE DILUENT 1 EA IV ONE ×2 (03:00→10:00)
--- NOTE | 2016-11-04 07:30 | ECGEPIP ---
Stationary ECG Study 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
[2016-11-04 07:46] LABS: MEAN CORPUSCULAR HEMOGLOBIN 29.5 pg (27.0-33.0); MEAN CORPUSCULAR HGB CONC 33.2 g/dl (32.0-36.5); RED CELL DISTRIBUTION WIDTH 15.3 % (11.5-14.5); WHITE BLOOD COUNT 4.4 K/mm3 (4.0-10.0)
[2016-11-04 08:02] LABS: ANION GAP 11 MEQ/L (8-16); BLOOD UREA NITROGEN 25 MG/DL (7-18); CALCIUM LEVEL 8.7 MG/DL (8.8-10.2); CARBON DIOXIDE LEVEL 28 MEQ/L (21-32); CHLORIDE LEVEL 105 MEQ/L (98-107); CREATININE FOR GFR 0.93 MG/DL (0.70-1.30); GLOMERULAR FILTRATION RATE > 60.0 (>35); GLUCOSE, FASTING 159 MG/DL (83-110); POTASSIUM SERUM 4.2 MEQ/L (3.5-5.1); SODIUM LEVEL 144 MEQ/L (136-145)
[2016-11-04] MEDS: ALLOPURINOL 100 MG TAB PO SCH (09:24)
[2016-11-04] MEDS: FUROSEMIDE 80 MG TAB PO SCH (09:24)
[2016-11-04] MEDS: SIMVASTATIN 20 MG TAB PO SCH (09:24)
[2016-11-04] MEDS: PANTOPRAZOLE 40MG TAB (PROTONIX) PO SCH (09:25)
[2016-11-04] MEDS: guaiFENesin ER 600 MG TAB PO SCH ×2 (09:25→20:16)
--- NOTE | 2016-11-04 15:12 | IPNPDOC ---
Assessment/Plan Date Seen The patient was seen on 11/04/16. Plan / VTE VTE Prophylaxis Ordered?: Yes Plan Plan Text 1. Shortness of breath secondary to viral respiratory tract infection, with possible underlying asthma versus environmental lung disease Chest x-ray and CTA unremarkable Continue Levaquin, Solu-Medrol Continue nebulizer treatments The patient states that his respiratory status has significantly improved since hospitalization 2. Coronary artery disease status post CABG, extensive vasculopathy status post femoropopliteal bypass and renal stenting, HLP Continue Plavix, Statin. 3. Chronic A. fib Rate controlled. Continue diltiazem and pradaxa. 4. Hypertension, controlled Continue diltiazem and home Lasix. 5. GERD Continue PPI. 6. Gout Continue allopurinol. DVT prophylaxis: On Pradaxa Disposition-pending clinical improvement, physical therapy evaluation. Subjective Review of Systems CC/HPI The patient is a 86-year-old male admitted with a reason for visit of Acute Respiratory Failure With Hypoxia. General: Denies: Chills, Night Sweats Constitutional: Denies: Chills, Fever Eyes: Denies: Pain, Vision change ENT: Denies: Ear Pain, Head Aches Skin: Denies: Lesions, Rash Pulmonary: Denies: Cough, Dyspnea Cardiovascular: Denies: Chest Pain, Palpitations Gastrointestinal: Denies: Nausea, Vomiting Hematologic: Denies: Bleeding Excessively, Bruising Objective Physical Examination General Exam: Positive: Alert, Cooperative, No Acute Distress ENT Exam: Positive: Atraumatic, Mucous membr. moist/pink Chest Exam: Positive: Diminished, Wheezing (faint wheeze noted in the upper lung zones bilaterally), Negative: Rales, Rhonchi Heart Exam: Positive: Normal S1, Normal S2 Abdomen Exam: Positive: Soft, Negative: Tenderness Extremity Exam: Negative: Edema, Tenderness Vital Signs/I&O Vital Signs Date Time Temp Pulse Resp B/P Pulse Ox O2 Delivery O2 Flow Rate FiO2 11/04/16 12:00 96.4 76 22 140/65 91 Room Air I&O- Last 24 Hours up to 6 AM 11/04/16 06:00 Intake Total 200 ml Output Total 175 ml Balance 25 ml Laboratory Data Labs 24H Laboratory Tests 2 11/03/16 17:13: Anion Gap 8, B-Type Natriuretic Peptide 167H, White Blood Count 5.8, Red Blood Count 4.83, Hemoglobin 14.1, Hematocrit 44.1, Mean Corpuscular Volume 91.3, Mean Corpuscular Hemoglobin 29.3, Mean Corpuscular Hemoglobin Concent 32.0, Red Cell Distribution Width 14.2, Platelet Count 206, Neutrophils (%) (Auto) 72.9H, Lymphocytes (%) (Auto) 12.0L, Monocytes (%) (Auto) 7.0H, Eosinophils (%) (Auto) 4.7H, Basophils (%) (Auto) 0.7, Neutrophils # (Auto) 4.2, Lymphocytes # (Auto) 0.7L, Monocytes # (Auto) 0.4, Eosinophils # (Auto) 0.3, Basophils # (Auto) 0.0, Blood Urea Nitrogen 27H, Creatinine 1.10, Sodium Level 140, Potassium Level 4.0 , Chloride Level 101, Carbon Dioxide Level 31, Calcium Level 9.0, Total Creatine Kinase 219, Creatine Kinase MB 6.4H, Creatine Kinase MB Relative Index 2.92, Glomerular Filtration Rate > 60.0, Large Unclassified Cells # 0.2, Large Unclassified Cells % 2.7, Troponin I 0.03 11/03/16 19:32: D-Dimer, Quantitative 1756.9H 11/03/16 20:08: Arterial Blood pH 7.407, Arterial Blood Partial Pressure CO2 39.4, Arterial Blood Partial Pressure O2 118.9H, Arterial Blood Total CO2 25.5, Arterial Blood HCO3 24.2, Arterial Blood Base Excess -0.3, Arterial Blood Oxygen Saturation 98.6, Blood Gas Bicarbonate Standard 24.3, Oxygen Delivery Device NASAL RHONDA 11/04/16 02:17: Total Creatine Kinase 205, Creatine Kinase MB 6.4H, Creatine Kinase MB Relative Index 3.12, Troponin I 0.03, Magnesium Level 1.9 11/04/16 06:57: Anion Gap 11, Blood Urea Nitrogen 25H, Creatinine 0.93, Sodium Level 144, Potassium Level 4.2, Chloride Level 105, Carbon Dioxide Level 28, Calcium Level 8.7L, Total Creatine Kinase 199, Creatine Kinase MB 7.2H, Creatine Kinase MB Relative Index 3.61, Glomerular Filtration Rate > 60.0, Troponin I 0.02# 11/04/16 14:52: CBC/BMP Laboratory Tests 11/03/16 17:13 Calcium Level 9.0, Total Creatine Kinase 219, Red Blood Count 4.83, Mean Corpuscular Volume 91.3, Mean Corpuscular Hemoglobin 29.3, Mean Corpuscular Hemoglobin Concent 32.0, Red Cell Distribution Width 14.2, Neutrophils (%) (Auto ) 72.9 H, Lymphocytes (%) (Auto) 12.0 L, Monocytes (%) (Auto) 7.0 H, Eosinophils (%) (Auto) 4.7 H, Basophils (%) (Auto) 0.7, Neutrophils # (Auto) 4.2 , Lymphocytes # (Auto) 0.7 L, Monocytes # (Auto) 0.4, Eosinophils # (Auto) 0.3, Basophils # (Auto) 0.0 11/04/16 06:57 Calcium Level 8.7 L, Total Creatine Kinase 199 11/04/16 06:58 Red Blood Count 4.08 L, Mean Corpuscular Volume 89.0, Mean Corpuscular Hemoglobin 29.5, Mean Corpuscular Hemoglobin Concent 33.2, Red Cell Distribution Width 15.3 H Microbiology Microbiology 11/03/16 Blood Culture, Received Pending 11/03/16 Blood Culture, Received Pending 11/04/16 Respiratory Virus Panel (PCR) ([facility]) - Final, Complete Coronavirus Oc43 ALBA EISENBERG MD Nov 04, 2016 15:12
--- NOTE | 2016-11-04 19:52 | ECHO ---
DATE OF PROCEDURE: 11/04/2016 REFERRING PHYSICIAN: Fifi Salmeron MD PATIENT LOCATION: Room 3222 REASON FOR ECHOCARDIOGRAM: Shortness of breath. 2D MEASUREMENTS: IVS: 1.0 cm LV: 4.8 cm LVPW: 1.0 cm LA: 5.1 cm Aorta: 3.0 cm IVC: 1.8 cm DOPPLER MEASUREMENTS: Peak velocity across the aortic valve: 4.0 m/s Peak velocity across the LVOT: 0.77 m/s Peak gradient across the aortic valve: 64 mmHg Mean gradient across the aortic valve: 39 mmHg Calculated aortic valve area: 0.53 cm2 Mitral E: 1.0 Maximum tricuspid valve velocity: 3.4 m/s 2D COMMENTS: 1. Normal left ventricular size, wall thickness with a normal global left ventricular systolic function. Left ventricular systolic ejection fraction is estimated at 65 to 70%. 2. Moderately enlarged left atrium. The right atrium appeared to be mildly enlarged. Normal right ventricle. 3. The atrial septum appeared to be normal without evidence of defect or shunt. 4. Normal aortic root. 5. No pericardial effusion seen. 6. Moderately calcified aortic valve. Leaflet excursion is decreased. Mildly calcified mitral annulus. Normal anterior mitral valve leaflet motion. Normal tricuspid valve and pulmonic valve. The proximal pulmonary artery branches were not well visualized. 7. The inferior vena cava was normal in size at 1.8 cm. DOPPLER: It detects trace aortic regurgitation, moderate mitral regurgitation, mild to moderate tricuspid regurgitation and trace pulmonic regurgitation. The calculated pulmonary artery systolic pressure varies between 50 to 60 mmHg. Assessment of the left ventricular diastolic function appeared to be limited, however, subjectively there were findings consistent with left ventricular diastolic dysfunction. IMPRESSION: 1. Normal global left ventricular systolic function. 2. Aortic valve sclerosis with trace aortic regurgitation and moderately severe aortic stenosis. 3. Mitral annulus calcification with moderate mitral regurgitation and moderately enlarged left atrium. 4. Mildly dilated right atrium with mild to moderate tricuspid regurgitation and moderately severe pulmonary hypertension. 5. Not mentioned above, a sigmoid appearance of the basal ventricular septum was noted, benign finding.
[2016-11-05] MEDS ORDERED: BUDESONIDE 0.5 MG/2 ML INHALATION SUSPENSION INH SCH (00:30)
[2016-11-05] MEDS ORDERED: SODIUM CHLORIDE NASAL 0.65% SPRAY BTL (OCEAN) PRN (00:30)
[2016-11-05] MEDS: methylPREDNISolone INJ 125 MG/2 ML VIAL (J2930) IV SCH ×2 (01:15→09:51)
[2016-11-05] MEDS: IPRATROPIUM 0.5MG/ALBUTEROL 2.5MG INH SOL UD 3ML (DUONEB)(J7620) NEB PRN ×2 (03:49→12:34)
[2016-11-05 04:00] VITALS: BP 184/74
[2016-11-05 04:28] LABS: ABG BASE EXCESS -1.7 (-2.0-2.0); ABG HCO3 23.2 MEQ/L (22.0-26.0); ABG PARTIAL PRESSURE CO2 39.7 mmHg (35.0-45.0); ABG TOTAL CO2 24.4 MEQ/L (23.0-31.0); ABG pH (ARTERIAL) 7.384 UNITS (7.350-7.450)
[2016-11-05 05:07] LABS: MEAN CORPUSCULAR HEMOGLOBIN 29.1 pg (27.0-33.0); MEAN CORPUSCULAR HGB CONC 31.3 g/dl (32.0-36.5); RED CELL DISTRIBUTION WIDTH 14.5 % (11.5-14.5); WHITE BLOOD COUNT 14.8 K/mm3 (4.0-10.0)
[2016-11-05 05:24] LABS: MAGNESIUM LEVEL 2.4 MG/DL (1.8-2.4); POTASSIUM SERUM 3.8 MEQ/L (3.5-5.1)
[2016-11-05 05:48] LABS: CALCIUM LEVEL 8.8 MG/DL (8.8-10.2); CREATININE FOR GFR 1.45 MG/DL (0.70-1.30); GLOMERULAR FILTRATION RATE 48.9 (>35)
[2016-11-05] MEDS: IPRATROPIUM 0.5MG/ALBUTEROL 2.5MG INH SOL UD 3ML (DUONEB)(J7620) NEB SCH ×3 (07:33→19:56)
[2016-11-05] MEDS: BUDESONIDE 0.5 MG/2 ML INHALATION SUSPENSION INH SCH ×2 (07:33→19:56)
[2016-11-05 08:00] VITALS: BP 147/72
[2016-11-05] MEDS ORDERED: NS 1,000 ML IV SCH (08:15)
[2016-11-05] MEDS: PANTOPRAZOLE 40MG TAB (PROTONIX) PO SCH (09:12)
[2016-11-05] MEDS: ALLOPURINOL 100 MG TAB PO SCH (09:12)
[2016-11-05] MEDS: guaiFENesin ER 600 MG TAB PO SCH ×2 (09:12→21:29)
[2016-11-05] MEDS: DABIGATRAN ETEXILATE 75 MG CAP (PRADAXA) PO SCH ×2 (09:12→21:28)
[2016-11-05] MEDS: SIMVASTATIN 20 MG TAB PO SCH (09:13)
[2016-11-05 12:00] VITALS: BP 140/61
[2016-11-05] MEDS ORDERED: RACEPINEPHrine 2.25 % UD INHA INH PRN (12:45)
--- NOTE | 2016-11-05 14:53 | IPNPDOC ---
Assessment/Plan Date Seen The patient was seen on 11/05/16. Plan / VTE VTE Prophylaxis Ordered?: Yes Plan Plan Text Shortness of breath secondary to viral respiratory tract infection, with possible underlying asthma versus environmental lung disease Chest x-ray and CTA unremarkable Continue on doxycycline, switched to PO Prednisone Continue nebulizer treatments The patient states that his respiratory status has significantly improved since hospitalization He did have an episode of respiratory distress last night which quickly improved with inhaler therapy Acute Kidney Injury likely 2/2 Dehydration, decreased PO Intake Serum Creatinine noted to be 1.45 (baseline ~1.0) Gentle IVF Hydration ordered Episode of V-Tach Pt Asymptomatic, hemodynamically stable Electrolytes noted to be WNL Already on Cardizem, baseline HR noted to be in the 60s here ECHO notable for normal EF, moderate Troponin noted to be mildly elevated at 0.11 possibly 2/2 respiratory insufficiency/Increased work of breathing, SARAI, will continue to serially trend Dr. Regalado of Cardiology consulted We will continue to monitor on Telemetry Coronary artery disease status post CABG, extensive vasculopathy status post femoropopliteal bypass and renal stenting, HLP ECHO noted with normal EF, moderate Continue Plavix, Statin. Chronic A. fib Rate controlled. Continue diltiazem and pradaxa. Hypertension, controlled Continue diltiazem and home Lasix. GERD Continue PPI. Gout Continue allopurinol. DVT prophylaxis: On Pradaxa Disposition-pending clinical improvement Subjective Review of Systems CC/HPI The patient is a 86-year-old male admitted with a reason for visit of Acute Respiratory Failure With Hypoxia. General: Denies: Chills, Night Sweats Constitutional: Denies: Chills, Fever Eyes: Denies: Pain, Vision change ENT: Denies: Ear Pain, Head Aches Skin: Denies: Lesions, Rash Pulmonary: Denies: Cough, Dyspnea Cardiovascular: Denies: Chest Pain, Palpitations Gastrointestinal: Denies: Nausea, Vomiting Genitourinary: Denies: Dysuria, Frequency Hematologic: Denies: Bleeding Excessively, Bruising Objective Physical Examination General Exam: Positive: Alert, Cooperative, No Acute Distress ENT Exam: Positive: Atraumatic, Mucous membr. moist/pink Chest Exam: Positive: Diminished, Wheezing (faint wheeze noted in the upper lung zones bilaterally), Negative: Rales, Rhonchi Heart Exam: Positive: Normal S1, Normal S2 Abdomen Exam: Positive: Soft, Negative: Tenderness Extremity Exam: Negative: Edema, Tenderness Vital Signs/I&O Vital Signs Date Time Temp Pulse Resp B/P Pulse Ox O2 Delivery O2 Flow Rate FiO2 11/05/16 12:00 96.5 89 24 140/61 98 Room Air 11/04/16 23:50 40.0 I&O- Last 24 Hours up to 6 AM 11/05/16 06:00 Intake Total 1960 ml Output Total 1175 ml Balance 785 ml Laboratory Data Labs 24H Laboratory Tests 2 11/04/16 14:52: Creatine Kinase MB 8.5H, Creatine Kinase MB Relative Index 4.45H, Total Creatine Kinase 191, Troponin I < 0.02 11/05/16 04:16: Arterial Blood pH 7.384, Arterial Blood Partial Pressure CO2 39.7, Arterial Blood Partial Pressure O2 71.0L, Arterial Blood Total CO2 24.4, Arterial Blood HCO3 23.2, Arterial Blood Base Excess -1.7, Arterial Blood Oxygen Saturation 93.6L, Blood Gas Bicarbonate Standard 23.0 11/05/16 04:52: Creatine Kinase MB 17.6H, Creatine Kinase MB Relative Index 5.50H, Total Creatine Kinase 320H, Troponin I 0.06#, Anion Gap 14, Blood Urea Nitrogen 47#H, Creatinine 1.45#H, Sodium Level 142, Potassium Level 4.0, Chloride Level 103, Carbon Dioxide Level 25, Calcium Level 8.8, Glomerular Filtration Rate 48.9, Magnesium Level 2.4 11/05/16 04:53: B-Type Natriuretic Peptide 149H 11/05/16 14:35: CBC/BMP Laboratory Tests 11/05/16 04:52 Calcium Level 8.8, Red Blood Count 4.43, Mean Corpuscular Volume 93.0, Mean Corpuscular Hemoglobin 29.1, Mean Corpuscular Hemoglobin Concent 31.3 L, Red Cell Distribution Width 14.5, Total Creatine Kinase 320 H Microbiology Microbiology 11/03/16 Blood Culture - Preliminary, Resulted No growth after 24 hours . All specim... 11/03/16 Blood Culture - Preliminary, Resulted No growth after 24 hours . All specim... 11/04/16 Respiratory Virus Panel (PCR) ([facility]) - Final, Complete Coronavirus Oc43 ALBA EISENBERG MD Nov 05, 2016 14:53
[2016-11-05 16:00] VITALS: BP 120/57
[2016-11-05 20:00] VITALS: BP 143/71
[2016-11-05] MEDS ORDERED: POTASSIUM CHLORIDE 10 MEQ SR TABLET PO ONE (20:15)
[2016-11-05] MEDS: CALCITRIOL 0.25 MCG CAP (S0169) PO SCH (21:28)
[2016-11-05] MEDS: DOXYCYCLINE HYCLATE 100 MG TAB PO SCH (21:29)
[2016-11-05] MEDS: CLOPIDOGREL 75 MG TAB PO SCH (21:29)
[2016-11-05 23:59] VITALS: BP 136/67
[2016-11-06] MEDS: IPRATROPIUM 0.5MG/ALBUTEROL 2.5MG INH SOL UD 3ML (DUONEB)(J7620) NEB SCH ×4 (00:09→19:44)
--- NOTE | 2016-11-06 00:53 | ECGEPIP ---
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 Isolated PVCs are now noted otherwise atrial fibrillation is chronic Electronically Signed On 11-06-2016 0:52:48 EST by Benito Regalado
--- NOTE | 2016-11-06 02:11 | EDDOCDS ---
Physician Documentation [facility] Name: Kendall Salazar Age: 86 yrs Sex: Male : 1930 Arrival Date: 11/03/2016 Time: 16:18 Bed 15 Private MD: Jason Toussaint H. Disposition: 11/03/16 20:01 Hospitalization ordered by Fifi Salmeron for Inpatient Admission. Preliminary diagnosis are Shortness of breath, Wheezing. - Bed requested for PCU. - Status is Inpatient Admission. grace - Condition is Stable. - Problem is new. - Symptoms are unchanged. Historical: - Allergies: No known drug Allergies; - Home Meds: 1. calcitriol 0.25 mcg oral cap 1 cap (Last dose: 11/03/2016 08:00) 2. Klor-Con M20 20 mEq Oral TbTQ 1 tab once daily (Last dose: 11/03/2016 08:00) 3. furosemide 80 mg Oral tab 1 tab once daily (Last dose: 11/03/2016 08:00) 4. albuterol sulfate 2.5 mg /3 mL (0.083 %) Nebulizer nebu 3 mL 4 times per day as needed (Last dose: 11/02/2016) 5. diltiazem HCl 120 mg Oral cp24 1 cap once daily (Last dose: 11/03/2016 08:00) 6. simvastatin 20 mg Oral tab 1 tab once daily (Last dose: 11/03/2016 08:00) 7. Plavix 75 mg Oral tab 1 tab once daily (Last dose: 11/03/2016 08:00) 8. Pradaxa 150 mg oral cap 1 cap 2 times per day (Last dose: 11/03/2016 08:00) 9. allopurinol 100 mg Oral tab 1 tab once daily (Last dose: 11/03/2016 08:00) 10. pantoprazole 40 mg oral TbEC 1 tab once daily (Last dose: 11/03/2016 08:00) 11. Ventolin Rotahaler/Rotacaps 200 mcg Inhl CpDv every 4 hours as needed - PMHx: Gout; CAD; GERD; Hypercholesterolemia; Hypertension; - PSHx: CABG; femoral popliteal bypass graft right leg; - Social history: Smoking status: Patient states was never smoker of tobacco. No barriers to communication noted, The patient speaks fluent [place]. - Family history: Not pertinent. - : The pt / caregiver states he / she is on anticoagulants: Plavix. Pradaxa (Dabigatran) Home medication list is obtained from the patient. - Exposure Risk Screening:: None identified. Vital Signs: 11/03 16:20 BP 188 / 112; Pulse 66; Resp 16 S; Temp 96.1(O); Pulse Ox 97% on R/A; Weight 78.47 kg / gr2 173 lbs (R); Height 5 ft. 9 in. (175.26 cm) (R); Pain 4/10; 16:36 Resp 32; kpj 17:13 BP 163 / 117 (auto/); kcs 17:13 Pulse 70 MON; Pulse Ox 95% ; kcs 17:28 BP 190 / 79 (auto/); kcs 17:28 Pulse 72 MON; Pulse Ox 99% ; kcs 17:43 BP 174 / 79 (auto/); kcs 17:43 Pulse 72 MON; Pulse Ox 97% ; kcs 17:58 BP 172 / 74 (auto/); kcs 17:58 Pulse 74 MON; Resp 20; Pulse Ox 95% ; kcs 18:13 BP 160 / 68 (auto/); kcs 18:13 Pulse 74 MON; Pulse Ox 93% ; kcs 18:28 BP 174 / 78 (auto/); kcs 18:28 Pulse 80 MON; Resp 22; Pulse Ox 92% ; kcs 18:43 BP 206 / 81 (auto/); kcs 18:43 Pulse 80 MON; Pulse Ox 93% ; kcs 18:58 BP 180 / 77 (auto/); kcs 18:58 Pulse 74 MON; Pulse Ox 100% ; kcs 19:13 BP 180 / 77 (auto/); af2 19:13 Pulse 80 MON; Resp 24 S; Pulse Ox 93% ; af2 20:13 BP 179 / 101 (auto/); af2 20:13 Pulse 74 MON; Resp 18 S; Pulse Ox 98% on R/A; af2 21:13 BP 170 / 87 (auto/); af2 21:13 Pulse 74 MON; Resp 22 S; Pulse Ox 97% on 2 lpm NC; af2 21:43 BP 166 / 76 (auto/); af2 21:49 Pulse 74 MON; Resp 22 S; Pulse Ox 94% on 2 lpm NC; af2 21:58 BP 179 / 81 (auto/); af2 21:58 Pulse 68 MON; Resp 18 S; Pulse Ox 93% on R/A; af2 22:11 Pulse 70 MON; Pulse Ox 91% ; af2 22:13 BP 172 / 81 (auto/); af2 22:28 BP 185 / 85 (auto/); af2 22:28 Pulse 70 MON; Resp 18 S; Pulse Ox 82% on R/A; af2 22:58 BP 191 / 90 (auto/); af2 22:58 Pulse 74 MON; Resp 18 S; Pulse Ox 94% on R/A; af2 23:13 BP 189 / 84 (auto/); af2 23:13 Pulse 68 MON; Pulse Ox 94% ; af2 23:28 BP 172 / 81 (auto/); af2 23:28 Pulse 76 MON; Resp 18 S; Pulse Ox 94% on R/A; af2 11/04 00:13 BP 191 / 82 (auto/); af2 00:13 Pulse 68 MON; Resp 18 S; Pulse Ox 95% on R/A; af2 01:00 BP 169 / 77; Pulse 63; Resp 18; Temp 96.9(O); Pulse Ox 94% on R/A; Pain 0/10; kb5 11/03 16:20 Body Mass Index 25.55 (78.47 kg, 175.26 cm) gr2 MDM: 11/03 16:31 -Blood Culture (Adults Only), peripheral from different site, or from device/port/PICC sd1 etc. if present ordered. 16:31 Test Engine Mechanic/Pulse Ox/q 15 min VS ordered. sd1 16:31 IV Saline Lock ordered. sd1 16:31 Oxygen at 4L/Min NC or Home dosage ordered. sd1 16:31 Rhythm Strip to chart ordered. sd1 16:32 Chest, 1 View Ordered. EDMS 16:32 -Blood Culture Ordered. EDMS 16:32 B-Type Natiuretic Peptide Ordered. EDMS 16:32 Basic Metabolic Profile Ordered. EDMS 16:32 CBC with Diff Ordered. EDMS 16:32 Cardiac Injury Profile Ordered. EDMS 16:32 Troponin Ordered. EDMS 16:32 ECG WITH READING ER PHYS+CARDIAG ordered. EDMS 16:52 -Blood Culture (Adults Only), peripheral from different site, or from device/port/PICC deg etc. if present complete. 16:52 BLOOD CULTURES Ordered. EDMS 16:53 Albuterol 5 mg Nebulizer once ordered. le 16:53 Albuterol-Ipratropium 3 ml Inhalation once ordered. le 16:53 Call Respiratory ordered. le 16:54 Call Respiratory complete. deg 17:31 CBC with Diff Reviewed. le 17:45 Financial registration complete. [id number] 17:46 [facility] Payment Agreement was scanned into [employer] and attached to record. [email or web address] 18:00 2 GRAM SODIUM+DIET ordered. EDMS 18:28 Solu-MEDROL 125 mg IVP once ordered. le 18:28 Albuterol-Ipratropium 3 ml Inhalation once ordered. le 18:28 B-Type Natiuretic Peptide Reviewed. le 18:47 BED REQUEST+ADM ordered. EDMS 19:08 Basic Metabolic Profile Reviewed. le 19:08 Cardiac Injury Profile Reviewed. le 19:08 Troponin Reviewed. le 19:08 Chest, 1 View Reviewed. le 19:10 D-Dimer Quant Ordered. EDMS 19:58 D-Dimer Quant Reviewed. le 20:00 US Lower Extremity R/O DVT Ordered. EDMS 20:00 CT Chest Angio R/O PE Ordered. EDMS 20:03 Call Respiratory ordered. le 20:04 -Arterial Blood Gas Ordered. EDMS 20:31 Call Respiratory complete. ml3 22:12 Admission / Observation Status ordered. EDMS 22:13 ECHOCARD,DOPPLER/COLOR FLOW ordered. EDMS 22:13 2 GRAM SODIUM DIET ordered. EDMS 22:13 CARDIAC MARKER PANEL Ordered. EDMS 22:13 CARDIAC MARKER PANEL Ordered. EDMS 22:13 CARDIAC MARKER PANEL Ordered. EDMS 11/04 08:56 T-Sheet-- Draft Copy was scanned into [employer] and attached to record. gb 08:57 ECG/EKG was scanned into [employer] and attached to record. gb Administered Medications: 11/03 17:16 Drug: Albuterol-Ipratropium 3 ml [ipratropium-albuterol 0.5 mg-3 mg(2.5 mg base)/3 mL [facility] nebulization soln (3 mL)] Route: Inhalation; 17:25 Drug: Albuterol 5 mg [albuterol sulfate 2.5 mg/0.5 mL solution for nebulization (1 mL)] [facility] Route: Nebulizer; 18:30 Drug: Solu-MEDROL 125 mg [Solu-Medrol 500 mg intravenous solution (125 mg)] Route: IVP; kcs Site: left antecubital; 18:52 Drug: Albuterol-Ipratropium 3 ml [ipratropium-albuterol 0.5 mg-3 mg(2.5 mg base)/3 mL jh6 nebulization soln (3 mL)] Route: Inhalation; Signatures: Dispatcher [employer] EDPR Clarice Kimbrough MD MD sd1 Cassidy Anton, Organ Tuner Unit deg Genoveva Alfonso RN RN Dorcas Vidales RN MELISSA Good , MELISSA Teran RN, Gloria, Reg Reg gb Jb De Los Santos, Organ Tuner Unit ml3 Tina Saenz, DIRECTOR OF SPEECH PATHOLOGY Tori Jarquin RN RN af2 Jess Magallanes, Reg Reg ks16 Shreya Portillo RN, Jacob 6 The chart was reviewed and I authenticate all verbal orders and agree with the evaluation and treatment provided.Attachments: 17:46 [facility] Payment Agreement [email or web address] 11/04 08:56 T-Sheet-- Draft Copy 08:57 ECG/EKG Chart Complete MTDD
--- NOTE | 2016-11-06 02:11 | EDDOCDS ---
Nurse's Notes [facility] Name: Kendall Salazar Age: 86 yrs Sex: Male : 1930 Arrival Date: 11/03/2016 Time: 16:18 Bed 15 Private MD: Jason Toussaint H. Diagnosis: Shortness of breath;Wheezing Presentation: 11/03 16:35 Presenting complaint: Patient states: cough and SOB x [address] Toussaint's [facility] office. Red Flag criteria, finish triage then to bed. 16:35 Acuity: DANNY Level 2 [facility] 16:37 Adult Sepsis Screening: The patient does not have new or worsening altered mentation. [facility] Patient has a respiratory rate of greater than or equal to 22 (1 point). Systolic blood pressure is greater than 100. Patient has a qSOFA score of 1- Negative Sepsis Screen. Suicide/Homicide risk assessment- the patient denies having any suicidal and/or homicidal ideations and does not present with any other emotional, behavioral or mental health complaints. Status: Patient is not a business services manager or dependent. Transition of care: patient was received from a primary care office; Dr Toussaint. 16:37 Method Of Arrival: Walkin/Carried/Asstd [facility] Triage Assessment: 16:44 General: Appears well nourished, well groomed, Behavior is appropriate for age, kpj pleasant. Pain: Denies pain. Neurological: Level of Consciousness is awake, alert, Oriented to person, place, time. Cardiovascular: Chest pain is denied. Respiratory: Onset: The symptoms/episode began/occurred 2-3 days ago, Airway is patent Respiratory effort is labored, shallow, Respiratory pattern is regular, symmetrical, Reports shortness of breath cough that is labored breathing wheezing. Derm: Skin is dry, Skin is pale, pink, Skin temperature is warm. Historical: - Allergies: No known drug Allergies; - Home Meds: 1. calcitriol 0.25 mcg oral cap 1 cap (Last dose: 11/03/2016 08:00) 2. Klor-Con M20 20 mEq Oral TbTQ 1 tab once daily (Last dose: 11/03/2016 08:00) 3. furosemide 80 mg Oral tab 1 tab once daily (Last dose: 11/03/2016 08:00) 4. albuterol sulfate 2.5 mg /3 mL (0.083 %) Nebulizer nebu 3 mL 4 times per day as needed (Last dose: 11/02/2016) 5. diltiazem HCl 120 mg Oral cp24 1 cap once daily (Last dose: 11/03/2016 08:00) 6. simvastatin 20 mg Oral tab 1 tab once daily (Last dose: 11/03/2016 08:00) 7. Plavix 75 mg Oral tab 1 tab once daily (Last dose: 11/03/2016 08:00) 8. Pradaxa 150 mg oral cap 1 cap 2 times per day (Last dose: 11/03/2016 08:00) 9. allopurinol 100 mg Oral tab 1 tab once daily (Last dose: 11/03/2016 08:00) 10. pantoprazole 40 mg oral TbEC 1 tab once daily (Last dose: 11/03/2016 08:00) 11. Ventolin Rotahaler/Rotacaps 200 mcg Inhl CpDv every 4 hours as needed - PMHx: Gout; CAD; GERD; Hypercholesterolemia; Hypertension; - PSHx: CABG; femoral popliteal bypass graft right leg; - Social history: Smoking status: Patient states was never smoker of tobacco. No barriers to communication noted, The patient speaks fluent Croatian. - Family history: Not pertinent. - : The pt / caregiver states he / she is on anticoagulants: Plavix. Pradaxa (Dabigatran) Home medication list is obtained from the patient. - Exposure Risk Screening:: None identified. Screenin:34 Screening information is obtained from the patient. Fall risk: At risk due to age, The af2 following interventions are performed due to a positive Fall Risk Screen: Fall Risk is added to Special Handling on the patient Summary Screen. A Fall Risk Bracelet was applied to the patient. Side Rails are placed in the up position. A Call [place] is given with instruction to call for help when getting out of bed. Assistance ADL's: requires no assistance with activities of daily living. Abuse/DV Screen: The patient / caregiver reports he/she is: not in a situation that causes fear, pain or injury. Nutritional screening: No deficits noted. Advance Directives: Further advance directive information is declined. home support is adequate. Assessment: 17:20 General: Appears ill, well developed, well nourished, well groomed, Behavior is kcs cooperative, pleasant. Neurological: Level of Consciousness is awake, alert. Cardiovascular: no ankle edema noted.. Respiratory: Airway is patent Respiratory effort is labored, Respiratory pattern is regular, symmetrical, Breath sounds with wheezes bilaterally. Derm: Skin is intact, is healthy with good turgor, Skin is dry, Skin is normal. 17:45 Reassessment: patient sounds much better - no wheezing. Talking easier.. kcs 18:23 Reassessment: Patient eating dinner. Son at bedside.. kcs 18:30 Reassessment: patient became dyspneic and wheezing again after eating - provider kcs informed - orders received.. 19:14 General: Appears ill, Behavior is cooperative, pleasant, Assumed care of pt at this af2 time. Pt recently finished neb tx, reports symptoms have improved minimally. . Neurological: Level of Consciousness is awake, alert, obeys commands. Cardiovascular:. Respiratory: Airway is patent Respiratory effort is labored, Respiratory pattern is regular, symmetrical, Breath sounds with wheezes bilaterally. Reports shortness of breath. Derm: Skin is intact, is healthy with good turgor, Skin is dry, Skin is normal. 20:33 General: Appears in no apparent distress, Behavior is cooperative, pt lying on af2 stretcher talking on phone and watching tv, offers no complaints at this time. will continue to monitor. . Neurological: Level of Consciousness is awake, alert. Respiratory: Airway is patent Respiratory effort is labored. Derm: Skin is normal. 21:49 General: Appears in no apparent distress, Behavior is cooperative, pt transported to CT af2 at this time, tolerated procedure well. piv patent. pt lying on stretcher resting quietly.. Neurological: Level of Consciousness is awake, alert, obeys commands. Cardiovascular: Rhythm is regular. Respiratory: Airway is patent Respiratory effort is labored. Derm: Skin is normal. 22:53 General: Appears ill, Behavior is appropriate for age, cooperative. Neurological: Level af2 of Consciousness is awake, alert, obeys commands. Respiratory: Airway is patent Respiratory effort is labored. Derm: Skin is normal. 23:58 General: Appears in no apparent distress, Behavior is cooperative, pt assisted to use af2 urinal. . Neurological: Level of Consciousness is awake, alert, obeys commands. Respiratory: Airway is patent Respiratory effort is labored. Derm: Skin is normal. 11/04 00:57 General: Appears in no apparent distress, Behavior is appropriate for age. af2 Neurological: Level of Consciousness is awake, alert, obeys commands. Respiratory: Airway is patent Respiratory effort is labored. Derm: Skin is normal. Vital Signs: 11/03 16:20 BP 188 / 112; Pulse 66; Resp 16 S; Temp 96.1(O); Pulse Ox 97% on R/A; Weight 78.47 kg gr2 (R); Height 5 ft. 9 in. (175.26 cm) (R); Pain 4/10; 16:36 Resp 32; kpj 17:13 BP 163 / 117 (auto/); kcs 17:13 Pulse 70 MON; Pulse Ox 95% ; kcs 17:28 BP 190 / 79 (auto/); kcs 17:28 Pulse 72 MON; Pulse Ox 99% ; kcs 17:43 BP 174 / 79 (auto/); kcs 17:43 Pulse 72 MON; Pulse Ox 97% ; kcs 17:58 BP 172 / 74 (auto/); kcs 17:58 Pulse 74 MON; Resp 20; Pulse Ox 95% ; kcs 18:13 BP 160 / 68 (auto/); kcs 18:13 Pulse 74 MON; Pulse Ox 93% ; kcs 18:28 BP 174 / 78 (auto/); kcs 18:28 Pulse 80 MON; Resp 22; Pulse Ox 92% ; kcs 18:43 BP 206 / 81 (auto/); kcs 18:43 Pulse 80 MON; Pulse Ox 93% ; kcs 18:58 BP 180 / 77 (auto/); kcs 18:58 Pulse 74 MON; Pulse Ox 100% ; kcs 19:13 BP 180 / 77 (auto/); af2 19:13 Pulse 80 MON; Resp 24 S; Pulse Ox 93% ; af2 20:13 BP 179 / 101 (auto/); af2 20:13 Pulse 74 MON; Resp 18 S; Pulse Ox 98% on R/A; af2 21:13 BP 170 / 87 (auto/); af2 21:13 Pulse 74 MON; Resp 22 S; Pulse Ox 97% on 2 lpm NC; af2 21:43 BP 166 / 76 (auto/); af2 21:49 Pulse 74 MON; Resp 22 S; Pulse Ox 94% on 2 lpm NC; af2 21:58 BP 179 / 81 (auto/); af2 21:58 Pulse 68 MON; Resp 18 S; Pulse Ox 93% on R/A; af2 22:11 Pulse 70 MON; Pulse Ox 91% ; af2 22:13 BP 172 / 81 (auto/); af2 22:28 BP 185 / 85 (auto/); af2 22:28 Pulse 70 MON; Resp 18 S; Pulse Ox 82% on R/A; af2 22:58 BP 191 / 90 (auto/); af2 22:58 Pulse 74 MON; Resp 18 S; Pulse Ox 94% on R/A; af2 23:13 BP 189 / 84 (auto/); af2 23:13 Pulse 68 MON; Pulse Ox 94% ; af2 23:28 BP 172 / 81 (auto/); af2 23:28 Pulse 76 MON; Resp 18 S; Pulse Ox 94% on R/A; af2 11/04 00:13 BP 191 / 82 (auto/); af2 00:13 Pulse 68 MON; Resp 18 S; Pulse Ox 95% on R/A; af2 01:00 BP 169 / 77; Pulse 63; Resp 18; Temp 96.9(O); Pulse Ox 94% on R/A; Pain 0/10; kb5 11/03 16:20 Body Mass Index 25.55 (78.47 kg, 175.26 cm) gr2 Vitals: 11/03 16:20 Log In Time: November 03, 2016 at 16:20. RN notified that patient meets Red Flag gr2 criteria. ED Course: 16:19 Patient visited by Jacqueline Ivory. gr2 16:19 Patient moved to Waiting gr2 16:20 Jason Toussaint is Private Physician. gr2 16:24 Patient moved to Pre RCE gr2 16:36 Triage Initiated kpj 16:46 Patient moved to 15 kp 16:52 [facility] le 17:06 EKG done. (by ED staff). Reviewed by Tina OWUSU. ct3 17:07 Patient visited by Sobia Gomez, JIM. ct3 17:10 Inserted saline lock: 20 gauge in left antecubital area The patient tolerated the kcs procedure well. 17:14 Troponin Sent. kcs 17:14 Cardiac Injury Profile Sent. kcs 17:14 CBC with Diff Sent. kcs 17:14 Basic Metabolic Profile Sent. kcs 17:14 B-Type Natiuretic Peptide Sent. kcs 17:14 -Blood Culture Sent. kcs 17:14 BLOOD CULTURES Sent. kcs 17:18 Chest, 1 View Returned. EDMS 17:21 Patient visited by Tina aSenz FNP. le 17:46 [facility] Payment Agreement was scanned into [employer] and attached to record. ks16 18:14 Diet: 2 gram sodium given to patient. ct3 18:15 Patient visited by Sobia Gomez PCA. ct3 18:56 Tori Johnson,RN is Primary Nurse. af2 19:14 Patient visited by Tori Johnson RN. af2 19:16 Patient visited by Tori Johnson RN. af2 19:22 D-Dimer Quant Sent. af2 20:01 Fifi Salmeron is Hospitalizing Provider. le 20:14 -Arterial Blood Gas Sent. jh6 20:35 Patient visited by Tori Johnson RN. af2 21:51 Patient visited by Tori Johnson RN. af2 22:08 US Lower Extremity R/O DVT Returned. EDMS 22:08 CT Chest Angio R/O PE Returned. EDMS 22:52 The patient / caregiver is instructed regarding the plan of care and ED course. af2 22:53 No procedures done that require assistance. af2 23:59 Patient visited by Tori Johnson RN. af2 11/04 00:25 Patient visited by Tori Johnson RN. af2 00:41 Patient visited by Neto Jack PCA. kb5 01:01 Patient visited by Neto Jack PCA. kb5 08:56 T-Sheet-- Draft Copy was scanned into [employer] and attached to record. gb 08:57 ECG/EKG was scanned into [employer] and attached to record. gb Administered Medications: 11/03 17:16 Drug: Albuterol-Ipratropium 3 ml [ipratropium-albuterol 0.5 mg-3 mg(2.5 mg base)/3 mL [facility] nebulization soln (3 mL)] Route: Inhalation; 17:25 Drug: Albuterol 5 mg [albuterol sulfate 2.5 mg/0.5 mL solution for nebulization (1 mL)] jh6 Route: Nebulizer; 18:30 Drug: Solu-MEDROL 125 mg [Solu-Medrol 500 mg intravenous solution (125 mg)] Route: IVP; kcs Site: left antecubital; 18:52 Drug: Albuterol-Ipratropium 3 ml [ipratropium-albuterol 0.5 mg-3 mg(2.5 mg base)/3 mL 6 nebulization soln (3 mL)] Route: Inhalation; RT: 17:16 Initial Med Neb Given as ordered Patient was instructed and evaluated on procedure jh6 Patient tolerated procedure well without adverse effect. Respiratory: Airway is patent Respiratory effort is even, labored, Respiratory pattern is regular symmetrical, Breath sounds with wheezes in mediastinum, right upper lobe, left upper lobe, right middle lobe, left lower lobe and right lower lobe at expiration at inspiration. 17:25 Subsequent Med Neb Given as ordered Patient was reinforced on procedure Patient jh6 tolerated procedure well without adverse effect. Respiratory: Airway is patent Respiratory effort is even, labored, Respiratory pattern is regular symmetrical, Breath sounds with wheezes in mediastinum, right upper lobe, left upper lobe, right middle lobe, left lower lobe and right lower lobe at expiration at inspiration. 17:37 Respiratory: Airway is patent Respiratory effort is even, labored, Respiratory pattern jh6 is regular symmetrical, Breath sounds are coarse in right upper lobe, left upper lobe, right middle lobe, left lower lobe and right lower lobe Breath sounds with wheezes in mediastinum, right upper lobe, left upper lobe, right middle lobe, left lower lobe and right lower lobe at expiration. 18:53 Respiratory: Airway is patent Respiratory effort is even, labored, Respiratory pattern jh6 is regular symmetrical, Breath sounds are coarse in right upper lobe, left upper lobe, right middle lobe, left lower lobe and right lower lobe Breath sounds with wheezes in mediastinum, right upper lobe, left upper lobe, right middle lobe, left lower lobe and right lower lobe at expiration at inspiration. 19:02 Respiratory: Airway is patent Respiratory effort is even, labored, Respiratory pattern jh6 is regular symmetrical, Breath sounds are diminished in right upper lobe, left upper lobe, right middle lobe, left lower lobe and right lower lobe Stridor noted. 20:14 ABG's drawn from left radial artery pressure held for 5 minutes no bleeding noted jh6 pressure bandage applied specimen sent pt. tolerated well. Order Results: Lab Order: B-Type Natiuretic Peptide; SPEC'M 11/03/16 17:13 Test: BRAIN NATRIURETIC PEPTIDE; Value: 167; Range: <100; Abnormal: Above high normal; Units: PG/ML; Status: F Lab Order: Basic Metabolic Profile; SPEC'M 11/03/16 17:13 Test: GLUCOSE, FASTING; Value: 94; Range: 83-110; Units: MG/DL; Status: F Test: BLOOD UREA NITROGEN; Value: 27; Range: 7-18; Abnormal: Above high normal; Units: MG/DL; Status: F Test: CREATININE FOR GFR; Value: 1.10; Range: 0.70-1.30; Units: MG/DL; Status: F Test: GLOMERULAR FILTRATION RATE; Value: > 60.0; Range: >35; Status: F Test: SODIUM LEVEL; Value: 140; Range: 136-145; Units: MEQ/L; Status: F Test: POTASSIUM SERUM; Value: 4.0; Range: 3.5-5.1; Units: MEQ/L; Status: F Test: CHLORIDE LEVEL; Value: 101; Range: 98-107; Units: MEQ/L; Status: F Test: CARBON DIOXIDE LEVEL; Value: 31; Range: 21-32; Units: MEQ/L; Status: F Test: ANION GAP; Value: 8; Range: 8-16; Units: MEQ/L; Status: F Test: CALCIUM LEVEL; Value: 9.0; Range: 8.8-10.2; Units: MG/DL; Status: F Test Note: ; Units are mL/min/1.73 m2 Chronic Kidney Disease Staging per NKF: Stage I & II GFR >=60 Normal to Mildly Decreased Stage III GFR 30-59 Moderately Decreased Stage IV GFR 15-29 Severely Decreased Stage V GFR <15 Very Little GFR Left ESRD GFR <15 on TONG HOOKER Lab Order: CBC with Diff; SPEC'M 11/03/16 17:13 Test: WHITE BLOOD COUNT; Value: 5.8; Range: 4.0-10.0; Units: K/mm3; Status: F Test: RED BLOOD COUNT; Value: 4.83; Range: 4.30-6.10; Units: M/mm3; Status: F Test: HEMOGLOBIN; Value: 14.1; Range: 14.0-18.0; Units: g/dl; Status: F Test: HEMATOCRIT; Value: 44.1; Range: 42.0-52.0; Units: %; Status: F Test: MEAN CORPUSCULAR VOLUME; Value: 91.3; Range: 80.0-96.0; Units: fl; Status: F Test: MEAN CORPUSCULAR HEMOGLOBIN; Value: 29.3; Range: 27.0-33.0; Units: pg; Status: F Test: MEAN CORPUSCULAR HGB CONC; Value: 32.0; Range: 32.0-36.5; Units: g/dl; Status: F Test: RED CELL DISTRIBUTION WIDTH; Value: 14.2; Range: 11.5-14.5; Units: %; Status: F Test: PLATELET COUNT, AUTOMATED; Value: 206; Range: 150-450; Units: k/mm3; Status: F Test: NEUTROPHILS %; Value: 72.9; Range: 36.0-66.0; Abnormal: Above high normal; Units: %; Status: F Test: LYMPH %; Value: 12.0; Range: 24.0-44.0; Abnormal: Below low normal; Units: %; Status: F Test: MONO %; Value: 7.0; Range: 0.0-5.0; Abnormal: Above high normal; Units: %; Status: F Test: EOS %; Value: 4.7; Range: 0.0-3.0; Abnormal: Above high normal; Units: %; Status: F Test: BASO %; Value: 0.7; Range: 0.0-1.0; Units: %; Status: F Test: LARGE UNSTAINED CELL %; Value: 2.7; Range: 0.0-4.0; Units: %; Status: F Test: NEUTROPHILS #; Value: 4.2; Range: 1.8-7.7; Units: K/mm3; Status: F Test: LYMPH #; Value: 0.7; Range: 1.5-4.5; Abnormal: Below low normal; Units: K/mm3; Status: F Test: MONO #; Value: 0.4; Range: 0.0-0.8; Units: K/mm3; Status: F Test: EOS #; Value: 0.3; Range: 0.0-0.50; Units: K/mm3; Status: F Test: BASO #; Value: 0.0; Range: 0.0-0.2; Units: K/mm3; Status: F Test: LARGE UNSTAINED CELL #; Value: 0.2; Range: 0.0-0.4; Units: K/mm3; Status: F Lab Order: Cardiac Injury Profile; [facility] 11/03/16 17:13 Test: CPK CREATINE PHOSPHOKINASE; Value: 219; Range: 39-308; Units: U/L; Status: F Test: CK-MB VALUE MASS; Value: 6.4; Range: 0.0-3.6; Abnormal: Above high normal; Units: NG/ML; Status: F Test: MB/CK RELATIVE INDEX; Value: 2.92; Range: < OR =4; Status: F Test Note: ; DIAGNOSIS CRITERIA MMB ng/ml Relative Index (RI) NON-AMI < or = 5 N/A JANE ZONE > 5 < or = 4 AMI > 5 > 4 Lab Order: Troponin; [facility] 11/03/16 17:13 Test: TROPONIN I; Value: 0.03; Range: < 0.10; Units: NG/ML; Status: F Test Note: ; Troponin I Reference Interval for [employer] LOCI: 99th Percentile= 0.00-0.045 ng/ml Risk Stratification: <= 0.10 ng/ml Decreased Risk for Adverse Clinical Events. 0.10-1.50 ng/ml Increased Risk for Adverse Clinical Events. Evaluation of additional criterion and/or repeat testing in 2-6 hours is suggested to rule out myocardial damage. >= 1.50 ng/ml Indicative of Myocardial Injury. Lab Order: D-Dimer Quant; [facility] 11/03/16 19:32 Test: D-DIMER QUANT; Value: 1756.9; Range: <500; Abnormal: Above high normal; Units: ng/ml; Status: F Lab Order: -Arterial Blood Gas; [facility] 11/03/16 20:08 Test: ABG pH (ARTERIAL); Value: 7.407; Range: 7.350-7.450; Units: UNITS; Status: F Test: ABG PARTIAL PRESSURE CO2; Value: 39.4; Range: 35.0-45.0; Units: mmHg; Status: F Test: ABG PARTIAL PRESSURE O2; Value: 118.9; Range: 75.0-100.0; Abnormal: Above high normal; Units: mmHg; Status: F Test: ABG TOTAL CO2; Value: 25.5; Range: 23.0-31.0; Units: MEQ/L; Status: F Test: ABG HCO3; Value: 24.2; Range: 22.0-26.0; Units: MEQ/L; Status: F Test: ABG BASE EXCESS; Value: -0.3; Range: -2.0-2.0; Status: F Test: ABG STANDARD HCO3; Value: 24.3; Range: 22.0-26.0; Units: MEQ/L; Status: F Test: ABG O2 SATURATION; Value: 98.6; Range: 95.0-99.0; Units: %; Status: F Test: ABG DEVICE; Value: NASAL RHONDA; Status: F Radiology Order: Chest, 1 View Test: Chest, 1 View REASON FOR EXAMINATION: Shortness of Breath; PORTABLE CHEST:; ; AP portable view of the chest is performed and compared to prior study of; 09/10/2015.; ; There is mild cardiomegaly. There is no acute infiltrate or pulmonary edema. Lung; rocha appear unchanged. There is mild calcification of the thoracic aorta. The; mediastinal silhouette is unchanged. Multiple sternal wires are present.; ; IMPRESSION:; Mild cardiomegaly. No evidence of acute infiltrate or pulmonary edema.; ; ; ; Unreviewed; Radiology Order: CT Chest Angio R/O PE Test: CT Chest Angio R/O PE REASON FOR EXAMINATION: Shortness of Breath; ; CT angiogram of the chest; Clinical statement: Chest pain and shortness of breath.; Technique: Multiple axial CT images were obtained from the thoracic inlet through the upper abdomen a; fter a bolus administration of nonionic intravenous contrast. Coronal and sagittal reconstructions we; re also obtained.; No comparison is available.; Findings: The pulmonary arteries are well-opacified with contrast, with no intraluminal filling defec; ts to suggest embolism. The thoracic aorta is unremarkable, with minimal atherosclerotic calcificatio; ns. Thyroid gland is within normal limits. There is no thoracic lymphadenopathy. There are no pericar; dial or pleural effusions. The lungs are clear. Limited imaging of the upper abdomen is unremarkable.; There are no suspicious osseous lesions.; Impression: Unremarkable CT examination of the chest. No evidence of pulmonary embolism.; ; Radiology Order: US Lower Extremity R/O DVT Test: US Lower Extremity R/O DVT REASON FOR EXAMINATION: RLE swelling/post-op;Shortness of Breath; ; Clinical history: Pain, swelling.; Findings: The right common femoral, superficial femoral, popliteal, and other deep venous structures; compress normally and demonstrate normal color Doppler flow. Normal venous waveforms with augmentatio; n are seen. There is a right inguinal lymph node appreciated, measuring 2.1 x 1.0 I 1.7 cm, of uncert; ain clinical significance.; Impression:; No evidence of deep vein thrombosis in the right femoral popliteal venous system.; ; Outcome: 20:01 Decision to Hospitalize by Provider. le 22:53 Discharge Assessment: Patient awake, alert and oriented x 3. No cognitive and/or af2 functional deficits noted. Patient verbalized understanding of disposition instructions. patient administered narcotics - no. The following High Risk Discharge criteria are identified: None. Admitted to PCU accompanied by nurse, accompanied by tech, via stretcher, with chart. Condition: stable. CT Study completed. Property :Personal belongings accompany Pt. 11/04 01:10 Patient left the ED. oct Signatures: Dispatcher [employer] EDShreya Clark RN Genoveva Mendieta RN Dorcas Paz RN RN jan Barnhardt, Gloria, Reg Reg gb Neto Jack, SHEAR GRINDER OPERATOR SHEAR GRINDER OPERATOR kb5 Tina Saenz, FRANCOISE YEAST STACKER Sobia Leroy, SHEAR GRINDER OPERATOR SHEAR GRINDER OPERATOR ct3 Jose D Lopez jh6 Jacqueline Ivory gr2 Tori Johnson,RN RN af2 Jess Magallanes, Reg Reg [id number] Corrections: (The following items were deleted from the chart) 11/03 18:15 18:14 Diet: ct3 ct3 Chart Complete MTDD
--- NOTE | 2016-11-06 02:11 | EDDOCDS ---
Physician Documentation [facility] Name: Kendall Salazar Age: 86 yrs Sex: Male : 1930 Arrival Date: 11/03/2016 Time: 16:18 Bed 15 Private MD: Jason Toussaint H. Disposition: 11/03/16 20:01 Hospitalization ordered by Fifi Salmeron for Inpatient Admission. Preliminary diagnosis are Shortness of breath, Wheezing. - Bed requested for PCU. - Status is Inpatient Admission. grace - Condition is Stable. - Problem is new. - Symptoms are unchanged. Historical: - Allergies: No known drug Allergies; - Home Meds: 1. calcitriol 0.25 mcg oral cap 1 cap (Last dose: 11/03/2016 08:00) 2. Klor-Con M20 20 mEq Oral TbTQ 1 tab once daily (Last dose: 11/03/2016 08:00) 3. furosemide 80 mg Oral tab 1 tab once daily (Last dose: 11/03/2016 08:00) 4. albuterol sulfate 2.5 mg /3 mL (0.083 %) Nebulizer nebu 3 mL 4 times per day as needed (Last dose: 11/02/2016) 5. diltiazem HCl 120 mg Oral cp24 1 cap once daily (Last dose: 11/03/2016 08:00) 6. simvastatin 20 mg Oral tab 1 tab once daily (Last dose: 11/03/2016 08:00) 7. Plavix 75 mg Oral tab 1 tab once daily (Last dose: 11/03/2016 08:00) 8. Pradaxa 150 mg oral cap 1 cap 2 times per day (Last dose: 11/03/2016 08:00) 9. allopurinol 100 mg Oral tab 1 tab once daily (Last dose: 11/03/2016 08:00) 10. pantoprazole 40 mg oral TbEC 1 tab once daily (Last dose: 11/03/2016 08:00) 11. Ventolin Rotahaler/Rotacaps 200 mcg Inhl CpDv every 4 hours as needed - PMHx: Gout; CAD; GERD; Hypercholesterolemia; Hypertension; - PSHx: CABG; femoral popliteal bypass graft right leg; - Social history: Smoking status: Patient states was never smoker of tobacco. No barriers to communication noted, The patient speaks fluent Salvadorean. - Family history: Not pertinent. - : The pt / caregiver states he / she is on anticoagulants: Plavix. Pradaxa (Dabigatran) Home medication list is obtained from the patient. - Exposure Risk Screening:: None identified. Vital Signs: 11/03 16:20 BP 188 / 112; Pulse 66; Resp 16 S; Temp 96.1(O); Pulse Ox 97% on R/A; Weight 78.47 kg / gr2 173 lbs (R); Height 5 ft. 9 in. (175.26 cm) (R); Pain 4/10; 16:36 Resp 32; kpj 17:13 BP 163 / 117 (auto/); kcs 17:13 Pulse 70 MON; Pulse Ox 95% ; kcs 17:28 BP 190 / 79 (auto/); kcs 17:28 Pulse 72 MON; Pulse Ox 99% ; kcs 17:43 BP 174 / 79 (auto/); kcs 17:43 Pulse 72 MON; Pulse Ox 97% ; kcs 17:58 BP 172 / 74 (auto/); kcs 17:58 Pulse 74 MON; Resp 20; Pulse Ox 95% ; kcs 18:13 BP 160 / 68 (auto/); kcs 18:13 Pulse 74 MON; Pulse Ox 93% ; kcs 18:28 BP 174 / 78 (auto/); kcs 18:28 Pulse 80 MON; Resp 22; Pulse Ox 92% ; kcs 18:43 BP 206 / 81 (auto/); kcs 18:43 Pulse 80 MON; Pulse Ox 93% ; kcs 18:58 BP 180 / 77 (auto/); kcs 18:58 Pulse 74 MON; Pulse Ox 100% ; kcs 19:13 BP 180 / 77 (auto/); af2 19:13 Pulse 80 MON; Resp 24 S; Pulse Ox 93% ; af2 20:13 BP 179 / 101 (auto/); af2 20:13 Pulse 74 MON; Resp 18 S; Pulse Ox 98% on R/A; af2 21:13 BP 170 / 87 (auto/); af2 21:13 Pulse 74 MON; Resp 22 S; Pulse Ox 97% on 2 lpm NC; af2 21:43 BP 166 / 76 (auto/); af2 21:49 Pulse 74 MON; Resp 22 S; Pulse Ox 94% on 2 lpm NC; af2 21:58 BP 179 / 81 (auto/); af2 21:58 Pulse 68 MON; Resp 18 S; Pulse Ox 93% on R/A; af2 22:11 Pulse 70 MON; Pulse Ox 91% ; af2 22:13 BP 172 / 81 (auto/); af2 22:28 BP 185 / 85 (auto/); af2 22:28 Pulse 70 MON; Resp 18 S; Pulse Ox 82% on R/A; af2 22:58 BP 191 / 90 (auto/); af2 22:58 Pulse 74 MON; Resp 18 S; Pulse Ox 94% on R/A; af2 23:13 BP 189 / 84 (auto/); af2 23:13 Pulse 68 MON; Pulse Ox 94% ; af2 23:28 BP 172 / 81 (auto/); af2 23:28 Pulse 76 MON; Resp 18 S; Pulse Ox 94% on R/A; af2 11/04 00:13 BP 191 / 82 (auto/); af2 00:13 Pulse 68 MON; Resp 18 S; Pulse Ox 95% on R/A; af2 01:00 BP 169 / 77; Pulse 63; Resp 18; Temp 96.9(O); Pulse Ox 94% on R/A; Pain 0/10; kb5 11/03 16:20 Body Mass Index 25.55 (78.47 kg, 175.26 cm) gr2 MDM: 11/03 16:31 -Blood Culture (Adults Only), peripheral from different site, or from device/port/PICC sd1 etc. if present ordered. 16:31 Bucket Wash Operator/Pulse Ox/q 15 min VS ordered. sd1 16:31 IV Saline Lock ordered. sd1 16:31 Oxygen at 4L/Min NC or Home dosage ordered. sd1 16:31 Rhythm Strip to chart ordered. sd1 16:32 Chest, 1 View Ordered. EDMS 16:32 -Blood Culture Ordered. EDMS 16:32 B-Type Natiuretic Peptide Ordered. EDMS 16:32 Basic Metabolic Profile Ordered. EDMS 16:32 CBC with Diff Ordered. EDMS 16:32 Cardiac Injury Profile Ordered. EDMS 16:32 Troponin Ordered. EDMS 16:32 ECG WITH READING ER PHYS+CARDIAG ordered. EDMS 16:52 -Blood Culture (Adults Only), peripheral from different site, or from device/port/PICC deg etc. if present complete. 16:52 BLOOD CULTURES Ordered. EDMS 16:53 Albuterol 5 mg Nebulizer once ordered. le 16:53 Albuterol-Ipratropium 3 ml Inhalation once ordered. le 16:53 Call Respiratory ordered. le 16:54 Call Respiratory complete. deg 17:31 CBC with Diff Reviewed. le 17:45 Financial registration complete. [email or web address] 17:46 [facility] Payment Agreement was scanned into [employer] and attached to record. [email or web address] 18:00 2 GRAM SODIUM+DIET ordered. EDMS 18:28 Solu-MEDROL 125 mg IVP once ordered. le 18:28 Albuterol-Ipratropium 3 ml Inhalation once ordered. le 18:28 B-Type Natiuretic Peptide Reviewed. le 18:47 BED REQUEST+ADM ordered. EDMS 19:08 Basic Metabolic Profile Reviewed. le 19:08 Cardiac Injury Profile Reviewed. le 19:08 Troponin Reviewed. le 19:08 Chest, 1 View Reviewed. le 19:10 D-Dimer Quant Ordered. EDMS 19:58 D-Dimer Quant Reviewed. le 20:00 US Lower Extremity R/O DVT Ordered. EDMS 20:00 CT Chest Angio R/O PE Ordered. EDMS 20:03 Call Respiratory ordered. le 20:04 -Arterial Blood Gas Ordered. EDMS 20:31 Call Respiratory complete. ml3 22:12 Admission / Observation Status ordered. EDMS 22:13 ECHOCARD,DOPPLER/COLOR FLOW ordered. EDMS 22:13 2 GRAM SODIUM DIET ordered. EDMS 22:13 CARDIAC MARKER PANEL Ordered. EDMS 22:13 CARDIAC MARKER PANEL Ordered. EDMS 22:13 CARDIAC MARKER PANEL Ordered. EDMS 11/04 08:56 T-Sheet-- Draft Copy was scanned into [employer] and attached to record. gb 08:57 ECG/EKG was scanned into [employer] and attached to record. gb Administered Medications: 11/03 17:16 Drug: Albuterol-Ipratropium 3 ml [ipratropium-albuterol 0.5 mg-3 mg(2.5 mg base)/3 mL [facility] nebulization soln (3 mL)] Route: Inhalation; 17:25 Drug: Albuterol 5 mg [albuterol sulfate 2.5 mg/0.5 mL solution for nebulization (1 mL)] [facility] Route: Nebulizer; 18:30 Drug: Solu-MEDROL 125 mg [Solu-Medrol 500 mg intravenous solution (125 mg)] Route: IVP; kcs Site: left antecubital; 18:52 Drug: Albuterol-Ipratropium 3 ml [ipratropium-albuterol 0.5 mg-3 mg(2.5 mg base)/3 mL jh6 nebulization soln (3 mL)] Route: Inhalation; Signatures: Dispatcher [employer] EDMN Clarice Kimbrough MD MD sd1 Cassidy Anton, Cvicu Rn Unit deg Genoveva Alfonso RN RN Dorcas Vidales RN MELISSA Good , MELISSA Teran RN, Gloria, Reg Reg gb Jb De Los Santos, Cvicu Rn Unit ml3 Tina Saenz, [employer] Tori Jarquin RN RN af2 Jess Magallanes, Reg Reg ks16 Shreya Portillo RN, Jacob 6 The chart was reviewed and I authenticate all verbal orders and agree with the evaluation and treatment provided.Attachments: 17:46 [facility] Payment Agreement [email or web address] 11/04 08:56 T-Sheet-- Draft Copy 08:57 ECG/EKG Chart Complete MTDD
[2016-11-06 04:00] VITALS: BP 138/74
[2016-11-06 05:44] LABS: MEAN CORPUSCULAR HEMOGLOBIN 29.6 pg (27.0-33.0); MEAN CORPUSCULAR VOLUME 89.8 fl (80.0-96.0); RED CELL DISTRIBUTION WIDTH 15.6 % (11.5-14.5); WHITE BLOOD COUNT 16.5 K/mm3 (4.0-10.0)
[2016-11-06 05:52] LABS: CALCIUM LEVEL 8.7 MG/DL (8.8-10.2); CREATININE FOR GFR 1.27 MG/DL (0.70-1.30)
[2016-11-06] MEDS: BUDESONIDE 0.5 MG/2 ML INHALATION SUSPENSION INH SCH ×2 (07:16→19:44)
[2016-11-06 08:00] VITALS: BP 140/75
[2016-11-06] MEDS: guaiFENesin ER 600 MG TAB PO SCH ×2 (08:54→20:35)
[2016-11-06] MEDS: PANTOPRAZOLE 40MG TAB (PROTONIX) PO SCH (08:54)
[2016-11-06] MEDS: predniSONE 20 MG TAB PO SCH (08:54)
[2016-11-06] MEDS: DOXYCYCLINE HYCLATE 100 MG TAB PO SCH ×2 (08:55→20:35)
[2016-11-06] MEDS: DABIGATRAN ETEXILATE 75 MG CAP (PRADAXA) PO SCH ×2 (08:55→20:35)
[2016-11-06] MEDS: SIMVASTATIN 20 MG TAB PO SCH (08:55)
[2016-11-06] MEDS: ALLOPURINOL 100 MG TAB PO SCH (08:55)
--- NOTE | 2016-11-06 11:22 | IPNPDOC ---
Assessment/Plan Date Seen The patient was seen on 11/06/16. Plan / VTE VTE Prophylaxis Ordered?: Yes Plan Plan Text Shortness of breath secondary to viral respiratory tract infection, with possible underlying asthma versus environmental lung disease Chest x-ray and CTA unremarkable Continue on doxycycline, switched to PO Prednisone Continue nebulizer treatments The patient states that his respiratory status has significantly improved since hospitalization We will continue to monitor his respiratory status Acute Kidney Injury likely 2/2 Dehydration, decreased PO Intake Serum Creatinine improving, closer to baseline Will restart Lasix tomorrow Episode of V-Tach on 11/05/16 Pt Asymptomatic, hemodynamically stable Electrolytes noted to be WNL Already on Cardizem, baseline HR noted to be in the 60s here ECHO notable for normal EF, moderate Troponin peaked at 0.13, this has downtrended since Dr. Regalado of Cardiology consulted We will continue to monitor on Telemetry Coronary artery disease status post CABG, extensive vasculopathy status post femoropopliteal bypass and renal stenting, HLP ECHO noted with normal EF, moderate Continue Plavix, Statin. Chronic A. fib Rate controlled. Continue diltiazem and pradaxa. Hypertension, controlled Continue diltiazem and home Lasix. GERD Continue PPI. Gout Continue allopurinol. DVT prophylaxis: On Pradaxa Disposition-pending cardiology evaluation for episode of V-tach, improvement of respiratory status. Subjective Review of Systems CC/HPI The patient is a 86-year-old male admitted with a reason for visit of Acute Respiratory Failure With Hypoxia. General: Denies: Chills, Night Sweats Constitutional: Denies: Chills, Fever Eyes: Denies: Pain, Vision change ENT: Denies: Ear Pain, Head Aches Skin: Denies: Lesions, Rash Pulmonary: Reports: Cough, Dyspnea Cardiovascular: Denies: Chest Pain, Palpitations Gastrointestinal: Denies: Nausea, Vomiting Genitourinary: Denies: Dysuria, Frequency Hematologic: Denies: Bleeding Excessively, Bruising Objective Physical Examination General Exam: Positive: Alert, Cooperative, No Acute Distress ENT Exam: Positive: Atraumatic, Mucous membr. moist/pink Chest Exam: Positive: Diminished, Wheezing (faint wheeze noted in the upper lung zones bilaterally), Negative: Rales, Rhonchi Heart Exam: Positive: Irregular Rhythm, Normal S1, Normal S2 Telemetry: Positive: Atrial fibrillation Abdomen Exam: Positive: Soft, Negative: Tenderness Extremity Exam: Negative: Edema, Tenderness Vital Signs/I&O Vital Signs Date Time Temp Pulse Resp B/P Pulse Ox O2 Delivery O2 Flow Rate FiO2 11/06/16 08:55 83 138/74 11/06/16 08:00 96.2 22 94 Room Air 11/04/16 23:50 40.0 I&O- Last 24 Hours up to 6 AM 11/06/16 06:00 Intake Total 2660 ml Output Total 975 ml Balance 1685 ml Laboratory Data Labs 24H Laboratory Tests 2 11/05/16 14:35: Troponin I 0.11#H 11/05/16 21:49: Troponin I 0.13H 11/06/16 05:03: Troponin I 0.12H, Anion Gap 9, Blood Urea Nitrogen 57H, Creatinine 1.27, Sodium Level 139, Potassium Level 4.0, Chloride Level 104, Carbon Dioxide Level 26, Calcium Level 8.7L, Glomerular Filtration Rate 57.0 CBC/BMP Laboratory Tests 11/06/16 05:03 Calcium Level 8.7 L, Red Blood Count 4.24 L, Mean Corpuscular Volume 89.8, Mean Corpuscular Hemoglobin 29.6, Mean Corpuscular Hemoglobin Concent 33.0, Red Cell Distribution Width 15.6 H Microbiology Microbiology 11/03/16 Blood Culture - Preliminary, Resulted No Growth after 48 hours. All Specime... 11/03/16 Blood Culture - Preliminary, Resulted No Growth after 48 hours. All Specime... 11/04/16 Respiratory Virus Panel (PCR) ([facility]) - Final, Complete Coronavirus Oc43 ALBA EISENBERG MD Nov 06, 2016 11:22
[2016-11-06 12:00] VITALS: BP 146/69
[2016-11-06 16:00] VITALS: BP 170/66
[2016-11-06] MEDS: CLOPIDOGREL 75 MG TAB PO SCH (20:35)
[2016-11-06] MEDS: CALCITRIOL 0.25 MCG CAP (S0169) PO SCH (20:35)
[2016-11-06 20:49] VITALS: BP 129/85
[2016-11-07 00:12] VITALS: BP 142/76
[2016-11-07] MEDS: IPRATROPIUM 0.5MG/ALBUTEROL 2.5MG INH SOL UD 3ML (DUONEB)(J7620) NEB SCH ×2 (01:24→07:12)
[2016-11-07 04:00] VITALS: BP 172/88
[2016-11-07 05:29] LABS: MEAN CORPUSCULAR HEMOGLOBIN 28.7 pg (27.0-33.0); MEAN CORPUSCULAR HGB CONC 32.2 g/dl (32.0-36.5); RED CELL DISTRIBUTION WIDTH 15.6 % (11.5-14.5)
[2016-11-07 05:39] LABS: CALCIUM LEVEL 9.1 MG/DL (8.8-10.2); CREATININE FOR GFR 1.31 MG/DL (0.70-1.30); POTASSIUM SERUM 4.1 MEQ/L (3.5-5.1)
[2016-11-07] MEDS: BUDESONIDE 0.5 MG/2 ML INHALATION SUSPENSION INH SCH (07:11)
[2016-11-07 08:00] VITALS: BP 145/74
[2016-11-07] MEDS: guaiFENesin ER 600 MG TAB PO SCH (08:49)
[2016-11-07] MEDS: ALLOPURINOL 100 MG TAB PO SCH (08:49)
[2016-11-07] MEDS: predniSONE 20 MG TAB PO SCH (08:49)
[2016-11-07] MEDS: DABIGATRAN ETEXILATE 75 MG CAP (PRADAXA) PO SCH (08:49)
[2016-11-07 08:50] VITALS: BP 145/74
[2016-11-07] MEDS: PANTOPRAZOLE 40MG TAB (PROTONIX) PO SCH (08:50)
[2016-11-07] MEDS: DOXYCYCLINE HYCLATE 100 MG TAB PO SCH (08:50)
[2016-11-07] MEDS: SIMVASTATIN 20 MG TAB PO SCH (08:50)
--- NOTE | 2016-11-07 09:23 | IPN ---
DATE: 11/07/2016 Mr. Salazar would like to go home and this is the first thing he tells me when I enter the room. He does admit that he continues to be very short of breath even though he is apparently better than he was prior to the admission. He denies any chest discomfort. Blood pressure 145/74. Heart rate 60s to 80s. He is afebrile. Saturation is 96% on room air. He is sitting in a chair and appears to be in mild respiratory distress even at rest. His jugular venous pulse (JVP) is not up. Lungs reveal diffuse expiratory as well as inspiratory wheezes bilaterally. Heart exam reveals somewhat muffled heart sounds, but I do not appreciate any gallop or rub. There is a murmur close to the apex that is relatively faint and is difficult to hear over loud respiratory sounds. Abdomen is soft, without tenderness. There is no peripheral edema. Neurologically, he is grossly intact. Laboratory-del rio, CBC with WBC 15,000, hemoglobin 13, hematocrit 40, platelet count 229,000. Basic metabolic panel: Potassium 4.1, BUN 63, creatinine 1.3. He had an echocardiogram on 11/03/2016 that revealed hyperdynamic LV systolic function with aortic sclerosis and moderately severe aortic stenosis. There was also moderate MR and moderately severely pulmonary hypertension. ASSESSMENT AND PLAN: Mr. Salazar is an elderly, 86-year-old man who has history of extensive vascular disease. He now presents with respiratory failure in the setting of known coronary artery disease and moderately severe aortic stenosis. He had single run of nonsustained ventricular tachycardia on telemetry and subsequent episode of isolated PVCs or couplets. He desperately wants to be discharged home today. The physical exam is most significant for fairly severe wheezing, both inspiratory but predominantly expiratory. At this point, I think that we probably can discharge him home. I do not think that he can get any beta blockers because of his respiratory sounds. It would be somewhat challenging for him to undergo open heart surgery, but he tentatively might be a candidate for Transcatheter aortic valve replacement (TAVR). Based on the gradient across the valve though, it is unlikely that the severity of aortic stenosis is truly in severe range. I will review his office records. Otherwise, the management of his wheezing should be handled accordingly. I wonder whether he would benefit from a course of steroids. He is getting inhaled steroids and prednisone, but so far I do not see any truly convincing effect even though I did not see patient prior to the admission and he tells me that he is feeling much better.
[2016-11-07] MEDS: FUROSEMIDE 80 MG TAB PO SCH (10:13)
[2016-11-07] MEDS ORDERED: ADV250INH INH (10:41)
[2016-11-07] MEDS ORDERED: DOXY10CA PO (10:41)
[2016-11-07] MEDS ORDERED: PRED10PA2 PO (10:41)
--- NOTE | 2016-11-07 13:08 | CR ---
DATE OF CONSULTATION: 11/06/2016 REFERRING PROVIDER: Prudencio Camp MD REASON FOR CONSULTATION: Cardiac arrhythmias. HISTORY OF PRESENT ILLNESS: 86-year-old male was admitted on 11/03/2016 with shortness of breath and wheezing. It was thought that he had exacerbation of chronic obstructive pulmonary disease (COPD) with underlying bronchitis versus pneumonia. He was started on antibiotics as well as steroids. He underwent a chest x-ray as well as a chest CT and they were benign. He was found to have a nonsustained wide complex tachycardia and a cardiology consult was called. He has a history of coronary artery disease with coronary artery bypass grafting (CABG), and peripheral artery disease. When I saw Mr. Kendall Salazar, he was sitting in a chair and he stated that he is ready to go home. He denies any chest pain, palpitations and he claimed that his pedal edema as well as his shortness of breath has improved significantly. He was wheezing when I was standing at bedside, but he stated that he always wheezes. He denies any fever or chills. He has nausea, vomiting, diarrhea, melena or hematemesis. He denies any bleeding. He has a cough, but no hemoptysis. He has no focal manifestation. He has a past medical history positive for coronary artery disease with coronary artery bypass grafting (CABG), atrial fibrillation that has been chronic and persistent, valvular heart disease with moderate aortic stenosis, chronic obstructive pulmonary disease (COPD), hypertension, hyperlipidemia, peripheral artery disease and revascularization, pedal edema. He also had percutaneous transluminal coronary angioplasty (PTCA) in the past. Past surgical history is positive for a CABG in 1994 and in July of 2016 he had a right femoral to posterior tibial artery bypass with a gutters graft by Dr. Hay in [place], [place]. Family history is positive for coronary artery disease and diabetes mellitus. SOCIAL HISTORY: The patient lives alone and he has a son who lives next door to him and is very supportive. He denies any smoking or EtOH abuse. MEDICATIONS: - by mouth daily - diltiazem 120 mg by mouth daily - Mucinex 600 mg by mouth twice a day and as needed - pantoprazole 40 mg by mouth daily - simvastatin 20 mg by mouth daily - DuoNeb one nebulizer every 6 hours - Tylenol 650 mg every 4 hours as needed for mild pain or fever - Zofran 4 mg by mouth every 6 hours as needed for nausea or vomiting and IV as needed - DuoNeb one nebulizer every 2 hours as needed for shortness of breath and wheezing - calcitriol 0.25 mg mcg by mouth daily in the evening - Plavix 75 mg by mouth daily - Pradaxa 150 mg by mouth twice a day - Percocet 5/325 mg one tablet every 4 hours as needed for moderate pain PHYSICAL EXAMINATION: The patient is alert and oriented, in no acute distress at rest. Vital signs when I saw him earlier today revealed a blood pressure of 146/69 with a pulse of 84, respirations 24, and his temperature was 96.9 degrees Fahrenheit with an oxygen saturation of 91% on room air. Examination of the head, ears, eyes, nose and throat atraumatic. Neck is supple, no jugular venous distention (JVD) or carotid bruits. The lungs revealed poor lung inspiratory efforts and bilateral wheezing. The heart examination revealed irregular heart sounds without gallops. The PMI is not displaced. There is no rub. There is systolic murmur heart over the precordium, louder at the base/aortic valve area with some minimal radiation to the neck. Abdomen is soft and nontender. Bowel sounds are active. Extremities reveal trace to +1 bilateral pitting pedal edema. Neurological examination is negative for focal deficits. LABORATORIES: CBC done on 11/06/2016 revealed a WBC of 16.5, hemoglobin 12.6, hematocrit 38.1, and platelets 222,000. On admission, his CBC revealed a WBC of 5.8, hemoglobin 14.1, hematocrit 44.1, and platelets 206,000. BMP done today revealed a sodium of 139, potassium 4.0, chloride 104, CO2 26, BUN 57, creatinine 1.27, GFR 67, fasting glucose 130, calcium 8.7. Serial Troponin were 0.03, 0.02, 0.02, 0.06, 0.11, 0.13 and 0.12. Serum BNP on 11/05 was 149 and on admission it was 167. BMP on admission 11/03/2016 revealed a sodium of 140, potassium 4.0, chloride 101, CO2 31, BUN 27 and creatinine of 1.10, GFR more than 60, fasting glucose 94, calcium 9.0. Serum D-Dimer on admission was 1756.9. ABG on admission revealed a pH of 7.40, pCO2 39.4, and pO2 118.9 on nasal cannula. EKG on admission revealed atrial fibrillation at 69 beats per minute, incomplete right bundle branch block, possible prior septal infarct and nonspecific STT abnormalities. Echocardiogram done on 11/03/2016 revealed a normal global left ventricular systolic function estimated at 65-70%, dilated left atrium with moderate mitral regurgitation, mildly dilated right atrium with mild to moderate tricuspid regurgitation, moderately severe pulmonary hypertension, moderately severe aortic stenosis. Electrocardiogram done on 11/05/2016 revealed atrial fibrillation and isolated PVCs including couplets. There is nonspecific STT abnormalities. Telemetry was reviewed a run of ventricular tachycardia, nonsustained was noted. IMPRESSION: 86-year-old man with the above medical problems was found to have a short run of nonsustained ventricular tachycardia, asymptomatic. The patient has been asymptomatic and his condition has improved and I will continue the same for now. The case will be discussed with his primary hand tire trimmer and further recommendations will be made. In the meantime, I recommend to monitor closely his BUN and creatinine and serum potassium, his kidney function has deteriorated. It has been a pleasure to participate in the care of Mr. Kendall Salazar for his underlying cardiac condition. I will continue to monitor him along with you while in the hospital. His chart from the office will be reviewed and further recommendations will be given.
--- NOTE | 2016-11-07 15:31 | DS.PDOC ---
Discharge Summary General Date of Admission Nov 03, 2016 at 22:07 Date of Discharge Nov 07, 2016 at 13:10 Specialist/Consultants Involve Dr. Callahan of Cardiology Discharge Summary PROCEDURES PERFORMED DURING STAY: None. COMPLICATIONS/CHIEF COMPLAINT: Acute Respiratory Failure With Hypoxia ADMISSION DIAGNOSES: 1. . Shortness of breath secondary to viral respiratory tract infection 2. . Nonsustained ventricular tachycardia DISCHARGE DIAGNOSES: 1. . Shortness of breath secondary to viral respiratory tract infection 2. . 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 The patient states that he does have a respiratory wheeze at baseline and a nonproductive cough for which she takes nebulizer treatments for daily. However, he denies a history of lung disease and notes that he has never seen a lung doctor before. 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 The patient denied any fevers, chills, chest pain, palpitations, abdominal pain, nausea/vomiting/diarrhea at home. In the ER, a CT scan of the chest was done and it revealed no evidence of pulmonary embolism or any other acute infiltrates or effusions. The patient was admitted to the hospitalist service for shortness of breath possibly secondary to a viral respiratory tract infection superimposed on likely underlying lung disease. During the patient's hospitalization here, he was found to have a respiratory panel positive for watters virus. The patient was started on IV steroids which were eventually transitioned to by mouth steroids. In addition, the patient was started on antibiotics as well. The patient's respiratory status has improved during his hospital stay here. He has been 96% to 98% on room air here and his ABG drawings have been reassuring as well. Of note, the patient did have an 11 beat run of nonsustained ventricular tachycardia during his hospital physician here. During this time, the patient was asymptomatic and hemodynamically stable. The patient also had a mild elevation of his troponin levels which peaked at 0.14. We did consult cardiology for this, and given the patient's underlying respiratory wheezing at this time we have decided to hold off on initiating any beta blockade therapy at this time. In addition, the patient's serum creatinine function was monitored during this time. He is on Lasix 80 mg daily, and we initially held this as he was noted to be dehydrated on presentation. It appears that the patient's serum creatinine is between 1.1 and 1.3 at baseline given his findings here after cessation of Lasix and gentle IV fluid hydration. I have spoken to the patient's son and his daughter [place] who have been advised to encourage by mouth fluid intake during this time given the patient's underlying viral respiratory infection. In addition, I have asked the patient to follow-up with his primary care physician within one week and obtain a referral for a negative turner apprentice as I do believe the patient could benefit from pulmonary function testing and further evaluation of the patient's underlying respiratory disease. I will discharge him on a tapering dose of steroids and a few more days of antibiotics to complete a 10 day trial. The patient has been seen by physical therapy and has been cleared to be discharged home as he was able to ablate 350 feet with a rolling walker here. DISCHARGE MEDICATIONS: Please see below. ALLERGIES: Please see below. PHYSICAL EXAMINATION ON DISCHARGE: VITAL SIGNS: Please see below. General Exam: Positive: Alert, Cooperative, No Acute Distress ENT Exam: Positive: Atraumatic, Mucous membr. moist/pink Chest Exam: Positive: Diminished, Wheezing (faint wheeze noted in the upper lung zones bilaterally), Negative: Rales, Rhonchi Heart Exam: Positive: Irregular Rhythm, Normal S1, Normal S2 Telemetry: Positive: Atrial fibrillation Abdomen Exam: Positive: Soft, Negative: Tenderness Extremity Exam: Negative: Edema, Tenderness LABORATORY DATA: Please see below. IMAGING: CT angiogram of the chest Clinical statement: Chest pain and shortness of breath. Technique: Multiple axial CT images were obtained from the thoracic inlet through the upper abdomen after a bolus administration of nonionic intravenous contrast. Coronal and sagittal reconstructions were also obtained. No comparison is available. Findings: The pulmonary arteries are well-opacified with contrast, with no intraluminal filling defects to suggest embolism. The thoracic aorta is unremarkable, with minimal atherosclerotic calcifications. Thyroid gland is within normal limits. There is no thoracic lymphadenopathy. There are no pericardial or pleural effusions. The lungs are clear. Limited imaging of the upper abdomen is unremarkable. There are no suspicious osseous lesions. Impression: Unremarkable CT examination of the chest. No evidence of pulmonary embolism. VTE Prophylaxis ordered?: Already on anticoagulation DISCHARGE CONDITION: Medically stable DISPOSITION: 01 Home, Self-Care ACTIVITY: As tolerated DIET: 2 g low sodium diet ITEMS TO FOLLOWUP ON OUTPATIENT: 1. . Follow-up with primary care physician within one to 2 weeks 2. . Obtain pulmonary referral as an outpatient for pulmonary function testing 3. . Encourage by mouth intake of fluids 4. Follow-up with Dr. Callahan of cardiology for further evaluation and management of underlying heart disease. TIME SPENT ON DISCHARGE: Greater than 30 minutes. Vital Signs/I&Os Vital Signs Date Time Temp Pulse Resp B/P Pulse Ox O2 Delivery O2 Flow Rate FiO2 11/07/16 08:54 Room Air 11/07/16 08:50 80 145/74 11/07/16 08:00 96.5 20 96 11/04/16 23:50 40.0 I&O- Last 24 Hours up to 6 AM 11/07/16 06:00 Intake Total 1740 ml Output Total 975 ml Balance 765 ml Laboratory Data Labs 24H Laboratory Tests 2 11/07/16 05:07: Anion Gap 11, Blood Urea Nitrogen 63H, Creatinine 1.31H, Sodium Level 139, Potassium Level 4.1, Chloride Level 103, Carbon Dioxide Level 25, Calcium Level 9.1, Glomerular Filtration Rate 55.0 CBC/BMP Laboratory Tests 11/07/16 05:07 Calcium Level 9.1, Red Blood Count 4.55, Mean Corpuscular Volume 89.0, Mean Corpuscular Hemoglobin 28.7, Mean Corpuscular Hemoglobin Concent 32.2, Red Cell Distribution Width 15.6 H Microbiology Microbiology 11/03/16 Blood Culture - Preliminary, Resulted No Growth after 72 hours. All specime... 11/03/16 Blood Culture - Preliminary, Resulted No Growth after 72 hours. All specime... 11/04/16 Respiratory Virus Panel (PCR) ([facility]) - Final, Complete Coronavirus Oc43 Medications Scheduled Allopurinol (Allopurinol) 100 Mg Tab 100 MG PO DAILY Calcitriol (Calcitriol) 0.25 Mcg Cap 0.25 MCG PO QPM Clopidogrel Bisulfate (Plavix) 75 Mg Tab 75 MG PO QPM Dabigatran Etexilate (Pradaxa) 150 Mg Cap 150 MG PO BID Diltiazem Hcl (Cardizem Cd) 120 Mg Cap 120 MG PO DAILY Doxycycline Hyclate (Doxycycline Hyclate) 100 Mg Tab 100 MG PO BID Furosemide (Lasix) 80 Mg Tab 80 MG PO DAILY Pantoprazole Sodium (Pantoprazole Sodium) 40 Mg Tab 40 MG PO DAILY Potassium Chloride (Klor-Con M20) 20 Meq Tabcr 20 MEQ PO QPM Prednisone (Prednisone) 10 Mg Taj 10 MG PO ASDIRECTED Salmeterol/Fluticasone (Advair Diskus 250-50 Mcg/Dose) 14 Puff/Inhaler Aerp 1 PUFF INH BID Simvastatin (Zocor) 20 Mg Tab 20 MG PO DAILY Scheduled PRN Albuterol Sulfate (Albuterol Sulfate) 2.5 Mg/3 Ml Nebu 2.5 MG INH Q6HP PRN PRN SOB/WHEEZING Albuterol Sulfate (Ventolin Hfa) 200 Puff/8 Gm Aers 2 PUFF INH Q4H PRN PRN SHORTNESS OF BREATH Allergies Coded Allergies: No Known Allergies (Unverified , 10/06/14) ALBA EISENBERG MD Nov 07, 2016 15:31
== END 2016-11-07 13:10 | disposition home or self-care (01) | DRG 206 ==
LOC: M ED 16:18 → M ED INP 22:07 → M PCU 11-04 01:15
PROVIDERS: ADMIT Hospitalist; ATTEND Internal Medicine
DX: J22 Unspecified acute lower respiratory infection (principal); N17.9 Acute kidney failure, unspecified; I47.2 Ventricular tachycardia; J67.0 Farmer's lung; I35.0 Nonrheumatic aortic (valve) stenosis; I73.9 Peripheral vascular disease, unspecified; I50.9 Heart failure, unspecified; I10 Essential (primary) hypertension; E78.5 Hyperlipidemia, unspecified; K21.9 Gastro-esophageal reflux disease without esophagitis; M10.9 Gout, unspecified; I48.91 Unspecified atrial fibrillation; I25.10 Atherosclerotic heart disease of native coronary artery without angina pectoris; Z95.1 Presence of aortocoronary bypass graft; Z79.899 Other long term (current) drug therapy; Z79.01 Long term (current) use of anticoagulants; J96.00 Acute respiratory failure, unspecified whether with hypoxia or hypercapnia; B97.29 Other coronavirus as the cause of diseases classified elsewhere

== ENCOUNTER 2017-05-10 06:28 | Day surgery (SDC) | payer MEDICARE ==
[~2017-05-10] VITALS: Ht 170.2 cm; Wt 73.0 kg
[~2017-05-10 06:28] MED LIST changes: +ADV250INH INH; +ALBU17IN INH; +ALLO100T PO; +CALC1CAP31 PO; +CARD120T4 PO; +DOXY100T2 PO; +INCR1INH IN; +PANT40TA2 PO; +PLAV1TAB2 PO; -PLAV75TA38 PO; +POTA20TA PO; +PRED10PA2 PO; +SPIR25TA2 PO; +SYMB16INH INH
[2017-05-10] MEDS ORDERED: LR 1,000 ML IV SCH (06:45)
[2017-05-10] MEDS ORDERED: BREO1INH INH (07:15)
[2017-05-10] MEDS ORDERED: CETACAINE SPRAY 20GM (FLOOR STOCK) As Ordered ONE (07:23)
[2017-05-10] MEDS ORDERED: LIDOCAINE VISCOUS 2% SOLN 15ML UDC As Ordered ONE (07:23)
[2017-05-10] MEDS ORDERED: PROPOFOL 200 MG/20 ML VIAL As Ordered ONE (08:27)
[2017-05-10 09:05] VITALS: BP 148/66
--- NOTE | 2017-05-11 08:27 | T-ECHO ---
DATE OF PROCEDURE: 05/10/2017 INDICATION: Aortic stenosis. PROCEDURE: Transesophageal echocardiogram. ANESTHESIA: Kevon Calderon CRNA POSTPROCEDURE DIAGNOSIS: Approximately moderate aortic stenosis. SURGEON: Dr. Tara Callahan ASSISTANT MERCHANDISE MANAGER: None BRIEF HISTORY: Mr. Salazar is an 87-year-old man who has coronary artery disease and aortic stenosis. He underwent cardiac catheterization and transthoracic echocardiogram. Both procedures calculated aortic valve area in severe range, approximately 1 cm square, but that gradient was relatively low and consequently concern was raised that the assessment of severity of aortic stenosis is not accurate. It was recommended to perform transesophageal echocardiogram for direct visualization of the valve. I explained the rationale to the patient and his family on an outpatient basis. Possible complications and alternatives were discussed, including avoiding the procedure completely. He signed appropriate consent. PROCEDURE NOTE: The procedure was performed in the operating room. Kevon Calderon CRNA, provided sedation. He received IV propofol in the form of drip. His posterior pharynx was anesthetized using Cetacaine [place] and viscous lidocaine. He was positioned in left lateral decubitus position. When appropriate level of sedation was accomplished, transesophageal echocardiogram probe was introduced into the esophagus and later the stomach without difficulty. After appropriate images were obtained, it was withdrawn. There were no immediate complications and the patient tolerated the procedure well. FINDINGS: The left ventricle has normal contractility. There is a prominent hypertrophy to the base of the septum in the form of "septal knuckle." Overall, ejection fraction (EF) is preserved. The right ventricle also has normal systolic function. Both atria are severely enlarged. There is a presence of "smoke" in the left atrium is indicative of low flow state. The left atrial appendage is large and free of thrombus. There is normal flow in both left- sided and right-sided pulmonary veins. The aortic valve has three cusps. The left and noncoronary cusps are heavily calcified and essentially immobile. The right coronary cusp though appears to be relatively spared and even though its mobility is restricted the overall picture by 2-D imaging is not consistent with critical aortic stenosis. The mitral valve appears normal. By color Doppler imaging there is approximately mild to moderate mitral insufficiency. There is mild tricuspid insufficiency. Unfortunately, I was never able to get a good TR signal to estimate pulmonary artery pressure. The tricuspid valve itself appears normal. The pulmonic valve also appears normal and is functionally competent. The atrial septum is intact based on two-dimensional and color Doppler imaging. The Doppler interrogation of the aortic valve reveals trivial insufficiency. The gradients that I was able to obtain indicated peak gradient 50 and mean gradient 24. This was with somewhat suboptimal alignment. There is prominent atherosclerosis in thoracic aorta, but no ulcerations or visible thrombi. CONCLUSIONS: 1. Preserved LV systolic function. 2. Preserved RV systolic function. 3. Severe biatrial enlargement. 4. Prominently calcified tricuspid aortic valve, but by 2-D imaging and color Doppler imaging probably only moderate or moderately severe aortic stenosis. 5. [id number] mitral insufficiency. 6. Atherosclerosis of the thoracic aorta. COMMENT: It is not likely that the patient has critical aortic stenosis. I will correlate the data with the results of transthoracic echocardiogram and cardiac catheterization, but in all likelihood there is no indication for aortic valve replacement. MTDD
== END 2017-05-10 09:25 | disposition home or self-care (01) ==
LOC: M SDC 06:28
PROVIDERS: ATTEND Internal Medicine Cardiovascular Disease
DX: I35.0 Nonrheumatic aortic (valve) stenosis (principal); I34.0 Nonrheumatic mitral (valve) insufficiency; I70.0 Atherosclerosis of aorta; I10 Essential (primary) hypertension; E78.00 Pure hypercholesterolemia, unspecified; Z95.5 Presence of coronary angioplasty implant and graft; R94.31 Abnormal electrocardiogram [ECG] [EKG]; M10.9 Gout, unspecified; G47.00 Insomnia, unspecified; N28.89 Other specified disorders of kidney and ureter; I48.2 Chronic atrial fibrillation; I25.10 Atherosclerotic heart disease of native coronary artery without angina pectoris; I73.9 Peripheral vascular disease, unspecified; J44.9 Chronic obstructive pulmonary disease, unspecified; Z79.899 Other long term (current) drug therapy; Z79.02 Long term (current) use of antithrombotics/antiplatelets; Z79.01 Long term (current) use of anticoagulants; Z79.52 Long term (current) use of systemic steroids; Z79.51 Long term (current) use of inhaled steroids; Z95.1 Presence of aortocoronary bypass graft